=== PATIENT | female | born 1990 | race Two or more races ===

== ENCOUNTER 2017-10-16 11:16 | Emergency (ER) | payer MEDICAID, OTHER ==
[2017-10-16 11:41] VITALS: BP 144/87
[2017-10-16] MEDS ORDERED: Alum Hydrox/Mag Hydrox/Simeth 30 ML, Lidocaine 2% 15 ML PO ONE ×2 (12:45)
--- NOTE | 2017-10-16 12:50 | EDM.PDOC ---
ED HPI GENERAL MEDICAL PROBLEM - General Chief Complaint: Cardiovascular Problem Stated Complaint: HEART FLUTTERING AND SOB Time Seen by Provider: 10/16/17 12:37 Source of Information: Reports: Patient History Limitations: Reports: No Limitations - History of Present Illness INITIAL COMMENTS - FREE TEXT/NARRATIVE: Patient is a 27-year-old female presents ED complaining of substernal fluttering sensation to her chest that started while washing cars today. States she became diaphoretic, nauseated, and experienced pain to the left shoulder and left elbow. She did vomit 1. Symptoms have resolved with admission to the ED. She states her breathing rate was elevated with no n/t to extremities. Denies being anxious. She's never experienced symptoms as such. She has a diagnosis of acid reflux and notes worsening symptoms last night. Nothing today noted. She has not taken any medications today. She describes the sensation in her chest as a spasm. She is currently on no medications. She's had a cholecystectomy. Denies smoking, alcohol use, or recreational drug use. She has no history of heart disease but notes her mother was diagnosed with coronary artery disease. Unknown age. Left Chest Pain Score (Numeric/FACES): 2 - Related Data Allergies Allergy/AdvReac Type Severity Reaction Status Date / Time No Known Allergies Allergy Verified 05/29/16 11:38 Home Meds: Home Meds . [No Known Home Meds] 05/29/16 [History] Past Medical History Respiratory History: Reports: Bronchitis, Recurrent Gastrointestinal History: Reports: GERD - Past Surgical History GI Surgical History: Reports: Cholecystectomy Social & Family History - Tobacco Use Smoking Status *Q: Never Smoker - Caffeine Use Caffeine Use: Reports: Soda, Tea - Recreational Drug Use Recreational Drug Use: No ED ROS GENERAL - Review of Systems Review Of Systems: See Below (With admission) Constitutional: Reports: No Symptoms HEENT: Reports: No Symptoms Respiratory: Reports: No Symptoms Cardiovascular: Reports: No Symptoms GI/Abdominal: Reports: No Symptoms : Reports: No Symptoms Musculoskeletal: Reports: Other (Pain to the left shoulder and left elbow described as a dull ache.). Denies: Back Pain Neurological: Reports: No Symptoms ED EXAM, GENERAL - Physical Exam Exam: See Below Exam Limited By: No Limitations General Appearance: Alert, WD/WN, No Apparent Distress Ears: Hearing Grossly Normal Nose: Normal Inspection Throat/Mouth: Normal Voice, No Airway Compromise Neck: Normal Inspection, Supple Respiratory/Chest: No Respiratory Distress, Lungs Clear, Normal Breath Sounds, No Accessory Muscle Use Cardiovascular: Normal Peripheral Pulses, Regular Rate, Rhythm, No Murmur Peripheral Pulses: 2+: Radial (L), Radial (R) GI/Abdominal: Normal Bowel Sounds, Soft, Non-Tender, No Organomegaly, No Distention Back Exam: Normal Inspection Extremities: Normal Inspection, Normal Range of Motion, Non-Tender, No Pedal Edema, Normal Capillary Refill Neurological: Alert, Oriented, CN II-XII Intact, Normal Cognition, No Motor/ Sensory Deficits Psychiatric: Normal Affect, Normal Mood Skin Exam: Warm, Dry, Intact, Normal Color Course - Vital Signs Last Recorded V/S: Last Vital Signs Temp 99.0 F 10/16/17 11:39 Pulse 87 10/16/17 11:39 Resp 11 L 10/16/17 11:39 BP 144/87 H 10/16/17 11:39 Pulse Ox 100 10/16/17 11:39 - Orders/Labs/Meds Labs: Laboratory Tests 10/16/17 10/16/17 10/16/17 Range/Units 13:10 13:10 13:10 WBC 7.39 (3.98-10.04) K/mm3 RBC 4.71 (3.98-5.22) M/mm3 Hgb 13.1 (11.2-15.7) gm/L Hct 40.4 (34.1-44.9) % MCV 85.8 (79.4-94.8) fl MCH 27.8 (25.6-32.2) pg MCHC 32.4 (32.2-35.5) g/dl RDW Std Deviation 40.3 (36.4-46.3) fL Plt Count 330 (182-369) K/mm3 MPV 9.4 (9.4-12.3) fl Neut % (Auto) 61.2 (34.0-71.1) % Lymph % (Auto) 30.7 (19.3-51.7) % [place] % (Auto) 7.0 (4.7-12.5) % Eos % (Auto) 0.7 (0.7-5.8) Baso % (Auto) 0.4 (0.1-1.2) % Neut # (Auto) 4.52 (1.56-6.13) K/mm3 Lymph # (Auto) 2.27 (1.18-3.74) K/mm3 [place] # (Auto) 0.52 H (0.24-0.36) K/mm3 Eos # (Auto) 0.05 (0.04-0.36) K/mm3 Baso # (Auto) 0.03 (0.01-0.08) K/mm3 Sodium 140 (136-145) mEq/L Potassium 3.9 (3.5-5.1) mEq/L Chloride 104 (98-107) mEq/L Carbon Dioxide 29 (21-32) mEq/L Anion Gap 10.9 (5-15) BUN 10 (7-18) mg/dL Creatinine 0.8 (0.55-1.02) mg/dL Est Cr Clr Drug Dosing 102.72 mL/min Estimated GFR (MDRD) > 60 (>60) mL/min BUN/Creatinine Ratio 12.5 L (14-18) Glucose 107 H (74-106) mg/dL Calcium 8.9 (8.5-10.1) mg/dL Total Bilirubin 0.3 (0.2-1.0) mg/dL AST 25 (15-37) U/L ALT 32 (14-59) U/L Alkaline Phosphatase 61 (46-116) U/L Troponin I < 0.017 (0.00-0.056) ng/mL C-Reactive Protein 1.7 H* (<1.0) mg/dL Total Protein 8.5 H (6.4-8.2) g/dl Albumin 3.3 L (3.4-5.0) g/dl Globulin 5.2 gm/dL Albumin/Globulin Ratio 0.6 L (1-2) TSH 3rd Generation 2.199 (0.358-3.74) uIU/mL HCG, Qual Negative (NEGATIVE) Meds: Medications Discontinued Medications Generic Name Dose Route Start Last Admin Trade Name Freq PRN Reason Stop Dose Admin Al Hydroxide/Mg Hydroxide 30 0 ml 10/16/17 12:45 10/16/17 13:10 ml/ Lidocaine HCl 15 ml PO 10/16/17 12:46 45 ml ONETIME ONE Administration - Re-Assessments/Exams Free Text/Narrative Re-Assessment/Exam: Will obtain basic labs including CBC, chem 14, CRP, hCG, and TSH. Chest x-ray one view will be obtained. Ordered by mouth GI cocktail. Lipase was not ordered with abdominal discomfort noted on examination.. Suspect origin of complaint is related to acid reflux may be spasming of the esophagus. Cannot rule out episodic arrhythmias at this point. Low probability of being heart disease related. Patient does have a first-degree relative mother with history of heart disease. EKG sinus rhythm at a rate of [address] changes noted. 10/16/17 12:51 Labs reviewed: CBC essentially normal. Chemistry panel essentially normal. CRP 1.7. TSH 2.199. HCG negative. Troponin less than 0.017. CXR no acute bony abnormalities. Final interpretation pending. Reviewed with Dr. Churchill. Reassessment, patient states symptoms have resolved with taking the GI cocktail. No pain to the left shoulder or arm. No spasm sensations to the substernal chest. She is ready to be discharged home. Departure - Departure Time of Disposition: 14:02 Disposition: Home, Self-Care 01 Condition: Good Clinical Impression: Esophageal spasm Acid reflux Qualifiers: Esophagitis presence: esophagitis presence not specified Qualified Code(s): K21.9 - Gastro-esophageal reflux disease without esophagitis Instructions: Esophageal Spasm, Gastroesophageal Reflux Disease, Adult Referrals: Hien Dean PA [Primary Care Provider] - Forms: ED Department Discharge, ED Return to Work/School Form Additional Instructions: As discussed symptoms relieved with taking a GI cocktail. History suggest maybe you had a esophageal spasm causing a fluttering sensation in your chest. This may be brought on by acid reflux which you have a history of. You're currently taking no medications for acid reflux thus will have you take Prilosec 40 mg once a day half-hour prior to eating breakfast every day for the next 2 weeks. Thereafter take 20 mg every day until evaluated by PCP. In addition can use Maalox intermittently throughout the day with worsening symptoms following manufactures dosing instructions. Refrain from any foods that cause worsening symptoms. Suggest limiting spicy food, caffeine, chocolates, eating or drinking 4 hours ago in the bed since this may worsen your acid reflux. Return to ED for any new or worsening symptoms.
--- NOTE | 2017-10-16 14:17 | CR ---
Chest: Portable view of the chest was obtained. Comparison: Prior chest x-ray of 05/29/16. Heart size and mediastinum are within normal limits for portable technique. Lungs are clear. Bony structures are grossly intact. Impression: 1. Nothing acute is identified on portable chest x-ray. Diagnostic code #1
== END 2017-10-16 14:45 | disposition home or self-care (01) ==
LOC: JD.ED 11:16 → SUPCPDRO 11:16 → JD.ED 14:45
DX: K21.9 Gastro-esophageal reflux disease without esophagitis (principal); K22.4 Dyskinesia of esophagus
CPT/HCPCS: 36415; 71010; 80053; 84443; 84484; 84703; 85025; 86140; 99285; A9270; 93010; 99283-25

== ENCOUNTER 2018-07-29 22:14 | Emergency (ER) | payer SELFPAY ==
[2018-07-29 22:28] VITALS: BP 159/93
[2018-07-29] MEDS ORDERED: Ondansetron 4 MG Tab.DIS PO ONE (23:51)
--- NOTE | 2018-07-30 03:54 | ER ---
REASON FOR CLINIC VISIT: Nausea and diarrhea. HISTORY OF PRESENT ILLNESS: This 27-year-old woman comes in with a history of nausea throughout the day today. She has had episodes of diarrhea up to 6 times per day over the last 2 to 3 days. She has had crampy abdominal discomfort. She did vomit last night. Her stools are usually loose, but she has had a couple that were watery. She has not noticed any blood in her stools. She denies any fever. Her vomiting did not have any blood last evening. She has noticed some increased urinary frequency today. She has had some heartburn along with this, and she does have a history of gastroesophageal reflux disease. PAST MEDICAL HISTORY: Gastroesophageal reflux disease as mentioned above. CURRENT MEDICATIONS: Reviewed, see EMR. ALLERGIES: None to medications. REVIEW OF SYSTEMS: All pertinent positives and negatives as listed in the HPI. PHYSICAL EXAMINATION: VITAL SIGNS: She is afebrile. O2 saturations 100%. Heart rate is 106, blood pressure 159/93, respiratory rate is 22. HEENT: Head is normocephalic. No scleral icterus or conjunctivitis. Oropharynx is normal. NECK: Supple. No adenopathy. No JVD. CHEST: Clear to auscultation with good air exchange bilaterally. No wheezes, rhonchi, or rales. CARDIAC: Regular rate without murmur. ABDOMEN: Obese, soft, nontender to deep palpation. There is no rebound or guarding or percussion tenderness. No hepatosplenomegaly or other palpable masses. EXTREMITIES: Normal pulses. No edema. Good color. LABORATORY: A CBC was normal and urinalysis was normal. IMPRESSION: Gastroenteritis. PLAN: Usual supportive measures were discussed with the patient. We did give her 6 tablets of Zofran 4 mg ODT's to be used once every 6 hours as needed for nausea. I expect that her symptoms should gradually resolve. If they worsen or should she start to develop fevers, she should be seen promptly. Any concerns that she should have, she should certainly give us a call or follow up with her provider. All questions were answered. She understands and agrees with this. MMODAL /[id number]
== END 2018-07-30 00:14 | disposition home or self-care (01) ==
LOC: JD.ED 22:14
DX: K52.9 Noninfective gastroenteritis and colitis, unspecified (principal)
CPT/HCPCS: 36415; 81001; 85025; 99284; A9270; 99283

== ENCOUNTER 2018-08-05 01:26 | Emergency (ER) | payer MEDICAID ==
[2018-08-05 01:42] VITALS: BP 140/88
[2018-08-05] MEDS ORDERED: Sodium Chloride 0.9% 10 ML Syringe FLUSH PRN (01:54)
--- NOTE | 2018-08-05 02:10 | EDM.PDOC ---
ED HPI GENERAL MEDICAL PROBLEM - General Chief Complaint: General Stated Complaint: PRESSURE IN HEAD AND NECK SHAKING Time Seen by Provider: 08/05/18 01:39 Source of Information: Reports: Patient, Family, Old Records History Limitations: Reports: No Limitations - History of Present Illness INITIAL COMMENTS - FREE TEXT/NARRATIVE: Patient presents with multiple symptoms but mainly including a general head discomfort/headache that feels like fluid on the right side of her head associated with general weakness, a feeling of not balanced her off center. Her concentration has been poor, she continues to have intermittent nausea but no vomiting or diarrhea. No stiff neck, no sore throat or runny nose. No stiff neck. Onset of symptoms was greater than 7-10 days ago when she had a generalized headache that was fairly severe and then had some nausea but then the symptoms resolved until she started having the more recent vomiting and then diarrhea. She was seen and evaluated here in the department on July 31 and evaluated for probable gastroenteritis. She has been eating bland foods. No fevers chills or sweats. She did feel shaky however not quite Rigor's but shakes and tremors today. Feels like her mouth is dry. No gross vision changes. She feels generally weak both upper and lower extremities. Headache Pain Score (Numeric/FACES): 6 - Related Data Allergies Allergy/AdvReac Type Severity Reaction Status Date / Time No Known Allergies Allergy Verified 07/29/18 22:28 Home Meds: Home Meds . [No Known Home Meds] 05/29/16 [History] Past Medical History - Past Health History Medical/Surgical History: Denies Medical/Surgical History Respiratory History: Reports: Bronchitis, Recurrent Gastrointestinal History: Reports: GERD - Past Surgical History GI Surgical History: Reports: Cholecystectomy Social & Family History - Family History Family Medical History: Noncontributory - Tobacco Use Smoking Status *Q: Never Smoker Second Hand Smoke Exposure: No - Caffeine Use Caffeine Use: Reports: Coffee, Soda, Tea - Recreational Drug Use Recreational Drug Use: No ED ROS GENERAL - Review of Systems Review Of Systems: See Below Constitutional: Reports: Chills, Decreased Appetite. Denies: Fever, Night Sweats, Diaphoresis HEENT: Denies: Vision Change Respiratory: Denies: Shortness of Breath, Cough Cardiovascular: Denies: Chest Pain, Palpitations Endocrine: Reports: Fatigue. Denies: Polyuria GI/Abdominal: Reports: Nausea. Denies: Abdominal Pain, Diarrhea, Vomiting : Denies: Dysuria, Irregular Menses Musculoskeletal: Reports: Muscle Pain. Denies: Neck Pain Skin: Denies: Jaundice, Rash Neurological: Reports: Confusion, Dizziness, Headache, Weakness. Denies: Syncope, Change in Speech Psychiatric: Reports: Confusion ED EXAM, GENERAL - Physical Exam Exam: See Below Exam Limited By: No Limitations General Appearance: Alert, WD/WN, No Apparent Distress Eye Exam: Bilateral Eye: EOMI, Normal Inspection, PERRL Throat/Mouth: Normal Inspection, Normal Teeth, Normal Oropharynx, Normal Voice Head: Atraumatic Neck: Supple, Non-Tender, Full Range of Motion Respiratory/Chest: No Respiratory Distress, Lungs Clear, Normal Breath Sounds, No Accessory Muscle Use Cardiovascular: Normal Peripheral Pulses, Regular Rate, Rhythm, No Edema GI/Abdominal: Normal Bowel Sounds, Soft, Non-Tender, No Organomegaly Extremities: No Pedal Edema Neurological: Alert, Oriented, CN II-XII Intact, Normal Cognition, Other ( Patient has bilateral general STRENGTH weakness. She also has positive Romberg sign however negative for finger to nose testing that seemed to be intact. In deficit. Position sense otherwise seems to be normal. No gross visual field deficit.) Psychiatric: Anxious Skin Exam: Warm, Dry EKG INTERPRETATION EKG Date: 08/05/18 Time: 02:09 EKG Interpretation Comments: EKG shows normal sinus rhythm rate of 77. Will 165 ms QRS is under 2 ms QT corrected is 455, normal EKG no acute changes Course - Vital Signs Text/Narrative:: Rule out for stroke, tumor, focal neurologic event. Rule out underlying infection, maybe electrolyte abnormality such as hypokalemia from vomiting. Normal EKG doubt acute coronary and/or cardiovascular event. She has had mosquito bites, we'll send West Nile virus IgM titer. Hydrate with fluids, rule out diabetes or other metabolic derangement. Last Recorded V/S: Last Vital Signs Temp 97.6 F 08/05/18 01:40 Pulse 82 08/05/18 01:40 Resp 18 08/05/18 01:40 BP 140/88 08/05/18 01:40 Pulse Ox 99 08/05/18 01:40 - Orders/Labs/Meds Orders: Active Orders 24 hr Category Date Time Status Cardiac Monitoring [RC] . DIRECTED Care 08/05/18 01:55 Active EKG Documentation Completion [RC] STAT Care 08/05/18 01:54 Active Peripheral IV Care [RC] . DIRECTED Care 08/05/18 01:56 Active Head wo Cont [CT] Stat Exams 08/05/18 01:54 Taken HCG QUALITATIVE,URINE [URCHEM] Stat Lab 08/05/18 02:46 Ordered UA W/MICROSCOPIC [URIN] Stat Lab 08/05/18 02:46 Ordered [facility] [place] [facility] [REF] Stat Lab 08/05/18 02:15 Received Sodium Chloride 0.9% [Normal Saline] 1,000 ml Med 08/05/18 02:11 Active IV ONETIME Sodium Chloride 0.9% [Saline Flush] Med 08/05/18 01:54 Active 10 ml FLUSH ASDIRECTED PRN Peripheral IV Insertion Adult [OM.PC] Stat Oth 08/05/18 01:55 Ordered Medication Orders Sodium Chloride (Normal Saline) 1,000 mls @ 500 mls/hr IV ONETIME ONE Stop: 08/05/18 04:10 Sodium Chloride (Saline Flush) 10 ml FLUSH ASDIRECTED PRN PRN Reason: Keep Vein Open Labs: Laboratory Tests 08/05/18 08/05/18 08/05/18 Range/Units 02:19 02:19 02:19 WBC 10.28 H (3.98-10.04) K/mm3 RBC 4.55 (3.98-5.22) M/mm3 Hgb 12.8 (11.2-15.7) gm/L Hct 38.8 (34.1-44.9) % MCV 85.3 (79.4-94.8) fl MCH 28.1 (25.6-32.2) pg MCHC 33.0 (32.2-35.5) g/dl RDW Std Deviation 40.3 (36.4-46.3) fL Plt Count 310 (182-369) K/mm3 MPV 9.9 (9.4-12.3) fl Neut % (Auto) 56.5 (34.0-71.1) % Lymph % (Auto) 35.5 (19.3-51.7) % [place] % (Auto) 6.8 (4.7-12.5) % Eos % (Auto) 0.7 (0.7-5.8) Baso % (Auto) 0.4 (0.1-1.2) % Neut # (Auto) 5.81 (1.56-6.13) K/mm3 Lymph # (Auto) 3.65 (1.18-3.74) K/mm3 [place] # (Auto) 0.70 H (0.24-0.36) K/mm3 Eos # (Auto) 0.07 (0.04-0.36) K/mm3 Baso # (Auto) 0.04 (0.01-0.08) K/mm3 Sodium 139 (136-145) mEq/L Potassium 3.5 (3.5-5.1) mEq/L Chloride 103 (98-107) mEq/L Carbon Dioxide 26 (21-32) mEq/L Anion Gap 13.5 (5-15) BUN 10 (7-18) mg/dL Creatinine 0.9 (0.55-1.02) mg/dL Est Cr Clr Drug Dosing 91.31 mL/min Estimated GFR (MDRD) > 60 (>60) mL/min BUN/Creatinine Ratio 11.1 L (14-18) Glucose 97 (74-106) mg/dL Lactic Acid 0.7 (0.4-2.0) mmol/L Calcium 8.8 (8.5-10.1) mg/dL Total Bilirubin 0.4 (0.2-1.0) mg/dL AST 21 (15-37) U/L ALT 32 (14-59) U/L Alkaline Phosphatase 55 (46-116) U/L C-Reactive Protein 1.2 H* (<1.0) mg/dL Total Protein 8.6 H (6.4-8.2) g/dl Albumin 3.5 (3.4-5.0) g/dl Globulin 5.1 gm/dL Albumin/Globulin Ratio 0.7 L (1-2) Urine Color (Yellow) Urine Appearance (Clear) Urine pH (5.0-8.0) Ur Specific [place] (1.005-1.030) Urine Protein (Negative) Urine Glucose (UA) (Negative) Urine Ketones (Negative) Urine Occult Blood (Negative) Urine Nitrite (Negative) Urine Bilirubin (Negative) Urine Urobilinogen (0.2-1.0) Ur Leukocyte Esterase (Negative) Urine RBC (0-5) /hpf Urine WBC (0-5) /hpf Ur Epithelial Cells (0-5) /hpf Urine Bacteria (FEW) /hpf Urine Mucus (FEW) /hpf Urine HCG, Qual (NEGATIVE) 08/05/18 08/05/18 Range/Units 02:46 02:46 WBC (3.98-10.04) K/mm3 RBC (3.98-5.22) M/mm3 Hgb (11.2-15.7) gm/L Hct (34.1-44.9) % MCV (79.4-94.8) fl MCH (25.6-32.2) pg MCHC (32.2-35.5) g/dl RDW Std Deviation (36.4-46.3) fL Plt Count (182-369) K/mm3 MPV (9.4-12.3) fl Neut % (Auto) (34.0-71.1) % Lymph % (Auto) (19.3-51.7) % [place] % (Auto) (4.7-12.5) % Eos % (Auto) (0.7-5.8) Baso % (Auto) (0.1-1.2) % Neut # (Auto) (1.56-6.13) K/mm3 Lymph # (Auto) (1.18-3.74) K/mm3 [place] # (Auto) (0.24-0.36) K/mm3 Eos # (Auto) (0.04-0.36) K/mm3 Baso # (Auto) (0.01-0.08) K/mm3 Sodium (136-145) mEq/L Potassium (3.5-5.1) mEq/L Chloride (98-107) mEq/L Carbon Dioxide (21-32) mEq/L Anion Gap (5-15) BUN (7-18) mg/dL Creatinine (0.55-1.02) mg/dL Est Cr Clr Drug Dosing mL/min Estimated GFR (MDRD) (>60) mL/min BUN/Creatinine Ratio (14-18) Glucose (74-106) mg/dL Lactic Acid (0.4-2.0) mmol/L Calcium (8.5-10.1) mg/dL Total Bilirubin (0.2-1.0) mg/dL AST (15-37) U/L ALT (14-59) U/L Alkaline Phosphatase (46-116) U/L C-Reactive Protein (<1.0) mg/dL Total Protein (6.4-8.2) g/dl Albumin (3.4-5.0) g/dl Globulin gm/dL Albumin/Globulin Ratio (1-2) Urine Color Yellow (Yellow) Urine Appearance Clear (Clear) Urine pH 6.5 (5.0-8.0) Ur Specific [place] 1.010 (1.005-1.030) Urine Protein Negative (Negative) Urine Glucose (UA) Negative (Negative) Urine Ketones Negative (Negative) Urine Occult Blood Negative (Negative) Urine Nitrite Negative (Negative) Urine Bilirubin Negative (Negative) Urine Urobilinogen 0.2 (0.2-1.0) Ur Leukocyte Esterase Negative (Negative) Urine RBC Not seen (0-5) /hpf Urine WBC Not seen (0-5) /hpf Ur Epithelial Cells Not seen (0-5) /hpf Urine Bacteria Rare (FEW) /hpf Urine Mucus Not seen (FEW) /hpf Urine HCG, Qual Negative (NEGATIVE) Meds: Medications Generic Name Dose Route Start Last Admin Trade Name Freq PRN Reason Stop Dose Admin Sodium Chloride 1,000 mls @ 500 mls/hr 08/05/18 02:11 Normal Saline IV 08/05/18 04:10 ONETIME ONE Sodium Chloride 10 ml 08/05/18 01:54 Saline Flush FLUSH ASDIRECTED PRN Keep Vein Open - Radiology Interpretation Free Text/Narrative:: CT head without contrast is reviewed with radiology and is within normal limits no acute findings. - Re-Assessments/Exams Free Text/Narrative Re-Assessment/Exam: 08/05/18 03:24 White blood cell count mildly elevated 10,700 hemoglobin and hematocrit are normal, CRP is 1.2 lactic acid test is negative, peds metabolic panel otherwise is normal. Free Text/Narrative Re-Assessment/Exam: 08/05/18 03:46 Reviewed all the results with the patient and currently her CT scan is normal white count 10,200, hemoglobin and hematocrit are stable, CRP is 1.2, blood sugar stable, serum lactate is normal, like lites otherwise within normal limits. His could be West Nile virus, no major headache doubt meningitis or encephalitis. Does seem to be more of a viral or flulike illness. Patient tolerating fluids well. Vital signs at this point are stable. We'll discharge patient home however she'll need to establish primary care. We'll write her for strict return precautions including increasing weakness, headaches, persistent nausea or vomiting, any worsening focal weakness, fevers chills or sweats. Departure - Departure Time of Disposition: 03:49 Disposition: Home, Self-Care 01 Preliminary Cause of *Q: Cardiac Arrest Condition: Fair Clinical Impression: Viral illness, Weakness generalized - Discharge Information Instructions: Fatigue, Weakness, [id number], Viral Illness, Adult Referrals: PCP,None [Primary Care Provider] - Forms: ED Department Discharge Additional Instructions: Follow-up in the walk-in clinic later this week to follow up on her West Nile virus titer. Rest, drink plenty of fluids. Take Tylenol or Motrin for aches or pains. Return to the emergency department if headaches, vision changes, fevers, vomiting and unable to keep down fluids, increasing weakness, worse - My Orders Last 24 Hours: My Active Orders 08/05/18 01:54 EKG Documentation Completion [RC] STAT Head wo Cont [CT] Stat Sodium Chloride 0.9% [Saline Flush] 10 ml FLUSH ASDIRECTED PRN 08/05/18 01:55 Cardiac Monitoring [RC] . DIRECTED Peripheral IV Insertion Adult [OM.PC] Stat 08/05/18 01:56 Peripheral IV Care [RC] . DIRECTED 08/05/18 02:11 Sodium Chloride 0.9% [Normal Saline] 1,000 ml IV ONETIME 08/05/18 02:15 [facility] [place] [facility] [REF] Stat 08/05/18 02:46 HCG QUALITATIVE,URINE [URCHEM] Stat UA W/MICROSCOPIC [URIN] Stat - Assessment/Plan Last 24 Hours: My Active Orders 08/05/18 01:54 EKG Documentation Completion [RC] STAT Head wo Cont [CT] Stat Sodium Chloride 0.9% [Saline Flush] 10 ml FLUSH ASDIRECTED PRN 08/05/18 01:55 Cardiac Monitoring [RC] . DIRECTED Peripheral IV Insertion Adult [OM.PC] Stat 08/05/18 01:56 Peripheral IV Care [RC] . DIRECTED 08/05/18 02:11 Sodium Chloride 0.9% [Normal Saline] 1,000 ml IV ONETIME 08/05/18 02:15 [facility] [place] [facility] [REF] Stat 08/05/18 02:46 HCG QUALITATIVE,URINE [URCHEM] Stat UA W/MICROSCOPIC [URIN] Stat
[2018-08-05] MEDS ORDERED: Sodium Chloride 0.9% 1,000 ML IV ONE (02:11)
[2018-08-05] MEDS ORDERED: Lidocaine 2% 20 ML MDV ONE (04:35)
[2018-08-05] MEDS ORDERED: Lidocaine 1% 50 ML MDV ONE (04:37)
[2018-08-05] MEDS ORDERED: Lidocaine 1% 10 ML MDV INJECT ONE (04:40)
--- NOTE | 2018-08-06 11:51 | CT ---
Head CT Technique: Multiple axial sections through the brain were obtained. Intravenous contrast was not utilized. Comparison: No prior intracranial imaging. Findings: Ventricles along with basal cisterns and sulci over the convexities are within normal limits for the patient's age. No abnormal parenchymal densities are seen. No evidence of intracranial hemorrhage. No midline shift or mass effect is seen. Bone window settings were reviewed which show the visualized sinuses to appear clear. No acute calvarial abnormality is seen. Impression: 1. No abnormality is seen on noncontrast head CT exam. Diagnostic code #1 I agree with preliminary report from [facility], finalized on 08/05/18, 4:18 AM Central Time
== END 2018-08-05 06:56 | disposition home or self-care (01) ==
LOC: JD.ED 01:26
DX: B34.9 Viral infection, unspecified (principal); R53.1 Weakness
CPT/HCPCS: 36415; 62270; 62272; 70450; 70450-26; 80053; 81001; 81025; 82945; 83605; 84157; 85025; 86140; 86788; 87070; 87205; 89050; 93005; 93010; 99284-25; 99285-25

== ENCOUNTER 2018-08-11 06:31 | Observation (INO) | payer SELFPAY ==
[2018-08-11] MEDS ORDERED: Sodium Chloride 0.9% 10 ML Syringe FLUSH PRN (07:26)
[2018-08-11] MEDS ORDERED: Sodium Chloride 0.9% 1,000 ML IV SCH (07:30)
--- NOTE | 2018-08-11 09:18 | EDM.PDOC ---
ED HPI GENERAL MEDICAL PROBLEM - General Chief Complaint: General Stated Complaint: nausea Time Seen by Provider: 08/11/18 07:06 Source of Information: Reports: Patient History Limitations: Reports: No Limitations - History of Present Illness INITIAL COMMENTS - FREE TEXT/NARRATIVE: The patient presents with nausea, generalized weakness, headache and lethargy. She says this has been going on for about 2 weeks. She started with nausea, vomiting and diarrhea. She was seen here and labs were done which were negative. C-dif was also negative. She kept having symptoms. She had pressure in her head. She was seen here on the and more labs were done and a lumbar puncture. That all looked good. A CT of her head was done that looked good. She still has symptoms. She has nausea, dizziness, generalized weakness, headache, lethargy and she had trouble walking. She needed the help of her father and a nurse to get into bed. She still has some head pressure, chills, and diarrhea. She does not have a fever, chest pain, cough, shortness of breath, abdominal pain or vomiting. She has never had anything like this before. She has not been around anyone who is sick and she did not eat any bad food. Onset: Gradual Duration: Week(s): (2) Location: Reports: Head Quality: Reports: Pressure Severity: Mild Improves with: Reports: None Worsens with: Reports: None Associated Symptoms: Reports: Fever/Chills, Headaches, Nausea/Vomiting. Denies : Chest Pain, Cough, Shortness of Breath - Related Data Allergies Allergy/AdvReac Type Severity Reaction Status Date / Time No Known Allergies Allergy Verified 07/29/18 22:28 Home Meds: Home Meds . [No Known Home Meds] 05/29/16 [History] Past Medical History - Past Health History Medical/Surgical History: Denies Medical/Surgical History Respiratory History: Reports: Bronchitis, Recurrent Gastrointestinal History: Reports: GERD - Past Surgical History GI Surgical History: Reports: Cholecystectomy Social & Family History - Family History Family Medical History: Noncontributory - Tobacco Use Smoking Status *Q: Unknown Ever Smoked - Caffeine Use Caffeine Use: Reports: Coffee, Soda, Tea ED ROS GENERAL - Review of Systems Review Of Systems: See Below Constitutional: Reports: Chills, Malaise, Weakness, Fatigue. Denies: Fever HEENT: Reports: No Symptoms Respiratory: Reports: No Symptoms Cardiovascular: Reports: No Symptoms Endocrine: Reports: Fatigue GI/Abdominal: Reports: Diarrhea, Nausea. Denies: Abdominal Pain, Vomiting : Reports: No Symptoms Musculoskeletal: Reports: No Symptoms ED EXAM, GENERAL - Physical Exam Exam: See Below Exam Limited By: No Limitations General Appearance: Alert, No Apparent Distress Ears: Normal External Exam Nose: Normal Inspection Head: Atraumatic, Normocephalic Neck: Normal Inspection Respiratory/Chest: No Respiratory Distress, Lungs Clear, Normal Breath Sounds Cardiovascular: Regular Rate, Rhythm, No Edema, No Murmur GI/Abdominal: Soft, Non-Tender, No Organomegaly, No Mass Back Exam: Normal Inspection Extremities: Normal Inspection Neurological: Alert, Oriented, Other (Genaralized weakness. She can lift her arms and legs up but she is very weak doing it.) EKG INTERPRETATION EKG Date: 08/11/18 Time: 07:36 Rhythm: NSR Rate (Beats/Min): 71 [place]: Normal P-Wave: Present QRS: Normal ST-T: Normal QT: Normal Course - Vital Signs Last Recorded V/S: Last Vital Signs Temp 98.5 F 08/11/18 06:57 Pulse 92 08/11/18 06:57 Resp 18 08/11/18 06:57 BP 159/80 H 08/11/18 06:57 Pulse Ox 100 08/11/18 06:57 - Orders/Labs/Meds Orders: Active Orders 24 hr Category Date Time Status Patient Status [ADT] Routine ADT 08/11/18 15:13 Ordered Cardiac Monitoring [RC] . DIRECTED Care 08/11/18 07:26 Active EKG Documentation Completion [RC] STAT Care 08/11/18 07:28 Active Peripheral IV Care [RC] . DIRECTED Care 08/11/18 07:28 Active CULTURE STOOL + SHIGATOX [RM] Stat Lab 08/11/18 08:15 Received DRUG SCREEN, URINE [URCHEM] Stat Lab 08/11/18 08:03 Ordered OVA & PARASITES BY IMMUNOASSAY [MREF] Stat Lab 08/11/18 08:15 Received THYROXINE (T4) [REF] Stat Lab 08/11/18 08:35 Received UA W/MICROSCOPIC [URIN] Stat Lab 08/11/18 08:03 Ordered Sodium Chloride 0.9% [Normal Saline] 1,000 ml Med 08/11/18 07:30 Active IV ASDIRECTED Sodium Chloride 0.9% [Saline Flush] Med 08/11/18 07:26 Active 10 ml FLUSH ASDIRECTED PRN Peripheral IV Insertion Adult [OM.PC] Stat Oth 08/11/18 07:26 Ordered Medication Orders Sodium Chloride (Normal Saline) 1,000 mls @ 125 mls/hr IV ASDIRECTED DANK Last Admin: 08/11/18 07:55 Dose: 125 mls/hr Sodium Chloride (Saline Flush) 10 ml FLUSH ASDIRECTED PRN PRN Reason: Keep Vein Open Last Admin: 08/11/18 07:55 Dose: 10 ml Labs: Laboratory Tests 08/11/18 08/11/18 08/11/18 Range/Units 07:55 07:55 07:55 WBC 8.77 (3.98-10.04) K/mm3 RBC 4.70 (3.98-5.22) M/mm3 Hgb 13.1 (11.2-15.7) gm/L Hct 39.6 (34.1-44.9) % MCV 84.3 (79.4-94.8) fl MCH 27.9 (25.6-32.2) pg MCHC 33.1 (32.2-35.5) g/dl RDW Std Deviation 39.1 (36.4-46.3) fL Plt Count 317 (182-369) K/mm3 MPV 10.3 (9.4-12.3) fl Neut % (Auto) 56.7 (34.0-71.1) % Lymph % (Auto) 36.0 (19.3-51.7) % [place] % (Auto) 6.8 (4.7-12.5) % Eos % (Auto) 0.2 L (0.7-5.8) Baso % (Auto) 0.2 (0.1-1.2) % Neut # (Auto) 4.96 (1.56-6.13) K/mm3 Lymph # (Auto) 3.16 (1.18-3.74) K/mm3 [place] # (Auto) 0.60 H (0.24-0.36) K/mm3 Eos # (Auto) 0.02 L (0.04-0.36) K/mm3 Baso # (Auto) 0.02 (0.01-0.08) K/mm3 ESR 47 H (0-20) mm/hr Sodium 139 (136-145) mEq/L Potassium 3.9 (3.5-5.1) mEq/L Chloride 104 (98-107) mEq/L Carbon Dioxide 25 (21-32) mEq/L Anion Gap 13.9 (5-15) BUN 9 (7-18) mg/dL Creatinine 1.0 (0.55-1.02) mg/dL Est Cr Clr Drug Dosing TNP Estimated GFR (MDRD) > 60 (>60) mL/min BUN/Creatinine Ratio 9.0 L (14-18) Glucose 100 (74-106) mg/dL Calcium 9.4 (8.5-10.1) mg/dL Magnesium 2.3 (1.8-2.4) mg/dl Total Bilirubin 0.5 (0.2-1.0) mg/dL AST 30 (15-37) U/L ALT 45 (14-59) U/L Alkaline Phosphatase 56 (46-116) U/L Troponin I < 0.017 (0.00-0.056) ng/mL C-Reactive Protein 1.2 H* (<1.0) mg/dL Total Protein 8.8 H (6.4-8.2) g/dl Albumin 3.6 (3.4-5.0) g/dl Globulin 5.2 gm/dL Albumin/Globulin Ratio 0.7 L (1-2) TSH 3rd Generation 1.429 (0.358-3.74) uIU/mL HCG, Qual (NEGATIVE) Urine Color (Yellow) Urine Appearance (Clear) Urine pH (5.0-8.0) Ur Specific [place] (1.005-1.030) Urine Protein (Negative) Urine Glucose (UA) (Negative) Urine Ketones (Negative) Urine Occult Blood (Negative) Urine Nitrite (Negative) Urine Bilirubin (Negative) Urine Urobilinogen (0.2-1.0) Ur Leukocyte Esterase (Negative) Urine RBC (0-5) /hpf Urine WBC (0-5) /hpf Ur Epithelial Cells (0-5) /hpf Urine Bacteria (FEW) /hpf Urine Mucus (FEW) /hpf Urine Opiates Screen (NEGATIVE) Ur Buprenorphine Scrn (NEGATIVE) Ur Oxycodone Screen (NEGATIVE) Urine Methadone Screen (NEGATIVE) Ur Propoxyphene Screen (NEGATIVE) Ur Barbiturates Screen (NEGATIVE) Ur Tricyclics Screen (NEGATIVE) Ur Phencyclidine Scrn (NEGATIVE) Ur Amphetamine Screen (NEGATIVE) U Methamphetamines Scrn (NEGATIVE) U Benzodiazepines Scrn (NEGATIVE) U Cocaine Metab Screen (NEGATIVE) U Marijuana (THC) Screen (NEGATIVE) Ethyl Alcohol 0.00 (0.00) gm% C.difficile 027-NAP1-B1 C. difficile Tox (PCR) 08/11/18 08/11/18 08/11/18 Range/Units 08:03 08:03 08:15 WBC (3.98-10.04) K/mm3 RBC (3.98-5.22) M/mm3 Hgb (11.2-15.7) gm/L Hct (34.1-44.9) % MCV (79.4-94.8) fl MCH (25.6-32.2) pg MCHC (32.2-35.5) g/dl RDW Std Deviation (36.4-46.3) fL Plt Count (182-369) K/mm3 MPV (9.4-12.3) fl Neut % (Auto) (34.0-71.1) % Lymph % (Auto) (19.3-51.7) % [place] % (Auto) (4.7-12.5) % Eos % (Auto) (0.7-5.8) Baso % (Auto) (0.1-1.2) % Neut # (Auto) (1.56-6.13) K/mm3 Lymph # (Auto) (1.18-3.74) K/mm3 [place] # (Auto) (0.24-0.36) K/mm3 Eos # (Auto) (0.04-0.36) K/mm3 Baso # (Auto) (0.01-0.08) K/mm3 ESR (0-20) mm/hr Sodium (136-145) mEq/L Potassium (3.5-5.1) mEq/L Chloride (98-107) mEq/L Carbon Dioxide (21-32) mEq/L Anion Gap (5-15) BUN (7-18) mg/dL Creatinine (0.55-1.02) mg/dL Est Cr Clr Drug Dosing Estimated GFR (MDRD) (>60) mL/min BUN/Creatinine Ratio (14-18) Glucose (74-106) mg/dL Calcium (8.5-10.1) mg/dL Magnesium (1.8-2.4) mg/dl Total Bilirubin (0.2-1.0) mg/dL AST (15-37) U/L ALT (14-59) U/L Alkaline Phosphatase (46-116) U/L Troponin I (0.00-0.056) ng/mL C-Reactive Protein (<1.0) mg/dL Total Protein (6.4-8.2) g/dl Albumin (3.4-5.0) g/dl Globulin gm/dL Albumin/Globulin Ratio (1-2) TSH 3rd Generation (0.358-3.74) uIU/mL HCG, Qual (NEGATIVE) Urine Color Yellow (Yellow) Urine Appearance Clear (Clear) Urine pH 7.5 (5.0-8.0) Ur Specific [place] 1.015 (1.005-1.030) Urine Protein Negative (Negative) Urine Glucose (UA) Negative (Negative) Urine Ketones Trace H (Negative) Urine Occult Blood Negative (Negative) Urine Nitrite Negative (Negative) Urine Bilirubin Negative (Negative) Urine Urobilinogen 0.2 (0.2-1.0) Ur Leukocyte Esterase Negative (Negative) Urine RBC 0-5 (0-5) /hpf Urine WBC 0-5 (0-5) /hpf Ur Epithelial Cells 0-5 (0-5) /hpf Urine Bacteria Rare (FEW) /hpf Urine Mucus Few (FEW) /hpf Urine Opiates Screen Negative (NEGATIVE) Ur Buprenorphine Scrn Negative (NEGATIVE) Ur Oxycodone Screen Negative (NEGATIVE) Urine Methadone Screen Negative (NEGATIVE) Ur Propoxyphene Screen Negative (NEGATIVE) Ur Barbiturates Screen Negative (NEGATIVE) Ur Tricyclics Screen Negative (NEGATIVE) Ur Phencyclidine Scrn Negative (NEGATIVE) Ur Amphetamine Screen Negative (NEGATIVE) U Methamphetamines Scrn Negative (NEGATIVE) U Benzodiazepines Scrn Negative (NEGATIVE) U Cocaine Metab Screen Negative (NEGATIVE) U Marijuana (THC) Screen Negative (NEGATIVE) Ethyl Alcohol (0.00) gm% C.difficile [id number]-NAP1-B1 Presumptive negative C. difficile Tox (PCR) Negative 08/11/18 Range/Units 08:35 WBC (3.98-10.04) K/mm3 RBC (3.98-5.22) M/mm3 Hgb (11.2-15.7) gm/L Hct (34.1-44.9) % MCV (79.4-94.8) fl MCH (25.6-32.2) pg MCHC (32.2-35.5) g/dl RDW Std Deviation (36.4-46.3) fL Plt Count (182-369) K/mm3 MPV (9.4-12.3) fl Neut % (Auto) (34.0-71.1) % Lymph % (Auto) (19.3-51.7) % [place] % (Auto) (4.7-12.5) % Eos % (Auto) (0.7-5.8) Baso % (Auto) (0.1-1.2) % Neut # (Auto) (1.56-6.13) K/mm3 Lymph # (Auto) (1.18-3.74) K/mm3 [place] # (Auto) (0.24-0.36) K/mm3 Eos # (Auto) (0.04-0.36) K/mm3 Baso # (Auto) (0.01-0.08) K/mm3 ESR (0-20) mm/hr Sodium (136-145) mEq/L Potassium (3.5-5.1) mEq/L Chloride (98-107) mEq/L Carbon Dioxide (21-32) mEq/L Anion Gap (5-15) BUN (7-18) mg/dL Creatinine (0.55-1.02) mg/dL Est Cr Clr Drug Dosing Estimated GFR (MDRD) (>60) mL/min BUN/Creatinine Ratio (14-18) Glucose (74-106) mg/dL Calcium (8.5-10.1) mg/dL Magnesium (1.8-2.4) mg/dl Total Bilirubin (0.2-1.0) mg/dL AST (15-37) U/L ALT (14-59) U/L Alkaline Phosphatase (46-116) U/L Troponin I (0.00-0.056) ng/mL C-Reactive Protein (<1.0) mg/dL Total Protein (6.4-8.2) g/dl Albumin (3.4-5.0) g/dl Globulin gm/dL Albumin/Globulin Ratio (1-2) TSH 3rd Generation (0.358-3.74) uIU/mL HCG, Qual Negative (NEGATIVE) Urine Color (Yellow) Urine Appearance (Clear) Urine pH (5.0-8.0) Ur Specific [place] (1.005-1.030) Urine Protein (Negative) Urine Glucose (UA) (Negative) Urine Ketones (Negative) Urine Occult Blood (Negative) Urine Nitrite (Negative) Urine Bilirubin (Negative) Urine Urobilinogen (0.2-1.0) Ur Leukocyte Esterase (Negative) Urine RBC (0-5) /hpf Urine WBC (0-5) /hpf Ur Epithelial Cells (0-5) /hpf Urine Bacteria (FEW) /hpf Urine Mucus (FEW) /hpf Urine Opiates Screen (NEGATIVE) Ur Buprenorphine Scrn (NEGATIVE) Ur Oxycodone Screen (NEGATIVE) Urine Methadone Screen (NEGATIVE) Ur Propoxyphene Screen (NEGATIVE) Ur Barbiturates Screen (NEGATIVE) Ur Tricyclics Screen (NEGATIVE) Ur Phencyclidine Scrn (NEGATIVE) Ur Amphetamine Screen (NEGATIVE) U Methamphetamines Scrn (NEGATIVE) U Benzodiazepines Scrn (NEGATIVE) U Cocaine Metab Screen (NEGATIVE) U Marijuana (THC) Screen (NEGATIVE) Ethyl Alcohol (0.00) gm% C.difficile [id number]-NAP1-B1 C. difficile Tox (PCR) Meds: Medications Generic Name Dose Route Start Last Admin Trade Name Freq PRN Reason Stop Dose Admin Sodium Chloride 1,000 mls @ 125 mls/hr 08/11/18 07:30 08/11/18 07:55 Normal Saline IV 125 mls/hr ASDIRECTED DANK Administration Sodium Chloride 10 ml 08/11/18 07:26 08/11/18 07:55 Saline Flush FLUSH 10 ml ASDIRECTED PRN Administration Keep Vein Open Discontinued Medications Generic Name Dose Route Start Last Admin Trade Name Freq PRN Reason Stop Dose Admin Meclizine HCl 25 mg 08/11/18 07:28 08/11/18 08:01 Antivert PO 08/11/18 07:29 25 mg ONETIME ONE Administration Ondansetron HCl 4 mg 08/11/18 09:29 08/11/18 09:36 Zofran IVPUSH 08/11/18 09:30 4 mg ONETIME ONE Administration - Re-Assessments/Exams Free Text/Narrative Re-Assessment/Exam: 08/11/18 09:20 I ordered an IV NS at 125mL/hr, labs, EKG and a UA. Her EKG shows a NSR with no acute changes. Her CBC and CMP look good. Her CRP was slightly elevated at 1.2. That has been about the same for the past couple of weeks. 08/11/18 09:21 Her TSH was normal. Her troponin was negative. Her UDS was negative and her ETOH was negative. I can get an MRI in a couple hours. I am not sure what is going on at this time. She was able to give us a stool sample. I will check it for C-dif, culture, ova and parasites. 08/11/18 15:14 Her C-dif was negative. Her MRI showed nothing acute. She feels a little better but I am not sure what is causing her problems at this time. I called Dr Hill and he agreed to the admission to observation. Departure - Departure Time of Disposition: 15:15 Disposition: Refer to Observation Condition: Fair Clinical Impression: Weakness, Nausea Headache Qualifiers: Headache type: unspecified Headache chronicity pattern: unspecified pattern Intractability: not intractable Qualified Code(s): R51 - Headache Diarrhea Qualifiers: Diarrhea type: unspecified type Qualified Code(s): R19.7 - Diarrhea, unspecified - Discharge Information Referrals: Yasmine Albright PA-C [Primary Care Provider] - Forms: ED Department Discharge - My Orders Last 24 Hours: My Active Orders 08/11/18 07:26 Cardiac Monitoring [RC] . DIRECTED Sodium Chloride 0.9% [Saline Flush] 10 ml FLUSH ASDIRECTED PRN Peripheral IV Insertion Adult [OM.PC] Stat 08/11/18 07:28 EKG Documentation Completion [RC] STAT Peripheral IV Care [RC] . DIRECTED 08/11/18 07:30 Sodium Chloride 0.9% [Normal Saline] 1,000 ml IV ASDIRECTED 08/11/18 08:03 DRUG SCREEN, URINE [URCHEM] Stat UA W/MICROSCOPIC [URIN] Stat 08/11/18 08:15 CULTURE STOOL + SHIGATOX [RM] Stat OVA & PARASITES BY IMMUNOASSAY [MREF] Stat 08/11/18 08:35 THYROXINE (T4) [REF] Stat 08/11/18 15:13 Patient Status [ADT] Routine - Assessment/Plan Last 24 Hours: My Active Orders 08/11/18 07:26 Cardiac Monitoring [RC] . DIRECTED Sodium Chloride 0.9% [Saline Flush] 10 ml FLUSH ASDIRECTED PRN Peripheral IV Insertion Adult [OM.PC] Stat 08/11/18 07:28 EKG Documentation Completion [RC] STAT Peripheral IV Care [RC] . DIRECTED 08/11/18 07:30 Sodium Chloride 0.9% [Normal Saline] 1,000 ml IV ASDIRECTED 08/11/18 08:03 DRUG SCREEN, URINE [URCHEM] Stat UA W/MICROSCOPIC [URIN] Stat 08/11/18 08:15 CULTURE STOOL + SHIGATOX [RM] Stat OVA & PARASITES BY IMMUNOASSAY [MREF] Stat 08/11/18 08:35 THYROXINE (T4) [REF] Stat 08/11/18 15:13 Patient Status [ADT] Routine
[2018-08-11] MEDS ORDERED: Ondansetron 4 MG/2 ML SDV IVPUSH ONE (09:29)
--- NOTE | 2018-08-11 12:11 | MR ---
MRI brain Technique: T1 sagittal; T2, T2 FLAIR, T1 and diffusion axial; T1 FLAIR coronal images were obtained. Comparison: Prior head CT exam of 08/05/18. Findings: Ventricles along with basal cisterns and sulci over the convexities are within normal limits for the patient's age. Normal signal void is seen within the major cerebral arteries within the skull base. No abnormal signal is seen within the brain parenchyma. No midline shift or mass effect is seen. No acute diffusion abnormalities are seen. There is some vague increased signal being seen within the middle cerebral peduncles and within the upper cerebral hemispheres on the diffusion study which is felt to be artifact. Impression: 1. Incidental artifactual diffusion findings as noted above. 2. MRI study of the brain is otherwise unremarkable. Diagnostic code #1
--- NOTE | 2018-08-11 15:09 | PCM.HP ---
<Roya Arredondoe - Last Filed: 08/11/18 15:43> H&P History of Present Illness - General Date of Service: 08/11/18 Source of Information: Patient History Limitations: Reports: No Limitations - History of Present Illness Initial Comments - Free Text/Narative: 27 y/o female presented to the ER today 08/11/18 with nausea, diarrhea, weakness , lethargy, and head pressure. She has been to the ER twice in the last two weeks for similar complaints, most recently on 08/05, and saw her PCP yesterday on 08/10. Previous workup has included blood draw, UA, EKG, head CT, and lumbar puncture, all of which showed no abnormalities. The lumbar puncture, done on 08/05 , did not improve nor worsen her symptoms. She states her PCP ordered labs to test for Lyme disease, hypothyroidism, and diabetes. Blood pressure was 159/80 today. She says the symptoms first began about 2 weeks ago, when she woke up one morning with a severe headache, pain level "10/10", which she said was the worst pain of her life. Her mouth was extremely dry at that time so she drank water and her headache resolved within the hour. The headache was followed by a sensation of "head pressure" and onset of dizziness, nausea, vomiting, and diarrhea. She initially thought she had the stomach flu or a viral illness. She later developed muscle weakness, spasms, and stiffness which are most prominent in her back, shoulders, and calves. She has occasional numbness and tingling in her lower extremities. She has continued to have dry mouth since this began and drinks about 7 17oz bottles of water daily to relieve this. The symptoms have persisted the last couple weeks, with severity waxing and waning throughout that time. During the last 3-4 days, her symptoms have gotten progressively worse. She is now lethargic and fatigued. Dizziness and weakness has worsened to the point that she finds it difficult to stand without support and bright lights and loud sounds are bothersome to her. She is having diarrhea multiple times per day despite having no appetite and eating very little. She is finding it difficult to sleep as she can't get comfortable and is very worried about what is happening to her. She states "I feel that I may " and is very frustrated with her symptoms. She has not had symptoms like this prior to the last 2 weeks. She has not traveled recently. She has not been around anyone who is sick. She has not had any new or bad foods. She did have many bug bites this summer, some of which became swollen and red. She also moved to a new apartment this month. She denies fever, vision changes, chest pain, palpitations, bruising , bleeding, and skin rashes. Prior to this experience, the patient was fairly healthy. She has GERD, for which she takes occasional mylanta. She states her PCP has also been concerned that she may have PCOS, due to her hirsutism, obesity, and infrequent menstrual cycles. Her last menstrual period was "years ago" but she is not concerned about as she has never been sexually active. She also has had anxiety in the past and saw a psychologist but says that this has been under control the last couple years. She denies tobacco and drug use and has only consumed alcohol once in her life. She is not currently taking any medications. Onset of Symptoms: Reports: Gradual Duration of Symptoms: Reports: Week(s): (2), Getting Worse, Waxing/Waning - Related Data Allergies/Adverse Reactions: Allergies Allergy/AdvReac Type Severity Reaction Status Date / Time No Known Allergies Allergy Verified 07/29/18 22:28 Home Medications: Home Meds . 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: Reports: Polycystic Ovaries (possible PCOS) LMP (Approximate): > 3 Months Psychiatric History: Reports: Anxiety - Past Surgical History GI Surgical History: Reports: Cholecystectomy Social & Family History - Family History Family Medical History: Noncontributory Endocrine/Metabolic: Reports: Diabetes, type II (mother, maternal grandmother, maternal uncle) Oncologic: Reports: Colon (colon cancer - paternal aunt) - Tobacco Use Smoking Status *Q: Never Smoker - Caffeine Use Caffeine Use: Reports: Coffee, Soda, Tea - Alcohol Use Alcohol Use History: No - Recreational Drug Use Recreational Drug Use: No - Sexual History Sexual History: Reports: None - Living Situation & Occupation Living situation: Reports: with Family Occupation: Unemployed Social History Comment: She recently moved to a new apartment with her father and brother. She has been unemployed the last two months. Prior to that she worked at [employer]. H&P Review of Systems - Review of Systems: Review Of Systems: See Below General: Reports: Malaise, Weakness, Fatigue, Decreased Appetite. Denies: Fever HEENT: Reports: Headaches, Other (head pressure). Denies: Hearing Changes, Visual Changes Pulmonary: Reports: Shortness of Breath, Cough Cardiovascular: Reports: No Symptoms Gastrointestinal: Reports: Abdominal Pain, Diarrhea, Decreased Appetite, Nausea , Vomiting Genitourinary: Reports: No Symptoms Musculoskeletal: Reports: Neck Pain, Shoulder Pain, Back Pain, Leg Pain, Muscle Pain, Muscle Stiffness Skin: Reports: No Symptoms Psychiatric: Reports: No Symptoms Neurological: Reports: Dizziness, Headache, Numbness, Tingling, Difficulty Walking, Weakness Hematologic/Lymphatic: Reports: No Symptoms Immunologic: Reports: No Symptoms Exam - Exam Exam: See Below - Vital Signs Vital Signs: Last Vital Signs Temp 98.5 F 08/11/18 06:57 Pulse 92 08/11/18 06:57 Resp 18 08/11/18 06:57 BP 159/80 H 08/11/18 06:57 Pulse Ox 100 08/11/18 06:57 - Exam General: Alert, Oriented, Cooperative, Moderate Distress HEENT: Conjunctiva Clear, EOMI, Hearing Intact, Nares Patent, Other ( opthalmascope exam performed - eyes were blurry and cloudy, optic disc and vessels could not be visualized) Neck: Supple, Trachea Midline Lungs: Clear to Auscultation, Normal Respiratory Effort Cardiovascular: Regular Rate, Regular Rhythm GI/Abdominal Exam: Normal Bowel Sounds, Soft, Tender (Female) Exam: Deferred Rectal (Female) Exam: Deferred Back Exam: Normal Inspection, Full Range of Motion Extremities: Normal Inspection, Normal Range of Motion, Non-Tender, No Pedal Edema Peripheral Pulses: 2+: Radial (L), Radial (R), Posterior Tibial (L), Posterior Tibial (R) Skin: Warm, Dry, Intact, Other (hirsutism) Neurological: Cranial Nerves Intact, Normal Speech, Sensation Intact Neuro Extensive - Mental Status: Alert, Normal Mood/Affect, Normal Cognition, Memory Intact Neuro Extensive - Motor, Sensory, Reflexes: CN II-XII Intact Psychiatric: Alert, Normal Affect, Normal Mood Physical Exam Comments:: Patient appears to be in some distress. She is having head and neck discomfort and generalized abdominal pain during the exam. Abdomen is tender upon palpation. Neuro exam shows intact hearing, EOM, processing talc and borate supervisor strength, and sensation. Eyes appear cloudy upon ophthalmoscope exam and optic disc and vessels cannot be visualized. No other abnormalities found. - Patient Data Lab Results Last 24 hrs: Laboratory Results - last 24 hr 08/11/18 08/11/18 08/11/18 Range/Units 07:55 07:55 07:55 WBC 8.77 (3.98-10.04) K/mm3 RBC 4.70 (3.98-5.22) M/mm3 Hgb 13.1 (11.2-15.7) gm/L Hct 39.6 (34.1-44.9) % MCV 84.3 (79.4-94.8) fl MCH 27.9 (25.6-32.2) pg MCHC 33.1 (32.2-35.5) g/dl RDW Std Deviation 39.1 (36.4-46.3) fL Plt Count 317 (182-369) K/mm3 MPV 10.3 (9.4-12.3) fl Neut % (Auto) 56.7 (34.0-71.1) % Lymph % (Auto) 36.0 (19.3-51.7) % [place] % (Auto) 6.8 (4.7-12.5) % Eos % (Auto) 0.2 L (0.7-5.8) Baso % (Auto) 0.2 (0.1-1.2) % Neut # (Auto) 4.96 (1.56-6.13) K/mm3 Lymph # (Auto) 3.16 (1.18-3.74) K/mm3 [place] # (Auto) 0.60 H (0.24-0.36) K/mm3 Eos # (Auto) 0.02 L (0.04-0.36) K/mm3 Baso # (Auto) 0.02 (0.01-0.08) K/mm3 ESR 47 H (0-20) mm/hr Sodium 139 (136-145) mEq/L Potassium 3.9 (3.5-5.1) mEq/L Chloride 104 (98-107) mEq/L Carbon Dioxide 25 (21-32) mEq/L Anion Gap 13.9 (5-15) BUN 9 (7-18) mg/dL Creatinine 1.0 (0.55-1.02) mg/dL Est Cr Clr Drug Dosing TNP Estimated GFR (MDRD) > 60 (>60) mL/min BUN/Creatinine Ratio 9.0 L (14-18) Glucose 100 (74-106) mg/dL Calcium 9.4 (8.5-10.1) mg/dL Magnesium 2.3 (1.8-2.4) mg/dl Total Bilirubin 0.5 (0.2-1.0) mg/dL AST 30 (15-37) U/L ALT 45 (14-59) U/L Alkaline Phosphatase 56 (46-116) U/L Troponin I < 0.017 (0.00-0.056) ng/mL C-Reactive Protein 1.2 H* (<1.0) mg/dL Total Protein 8.8 H (6.4-8.2) g/dl Albumin 3.6 (3.4-5.0) g/dl Globulin 5.2 gm/dL Albumin/Globulin Ratio 0.7 L (1-2) TSH 3rd Generation 1.429 (0.358-3.74) uIU/mL HCG, Qual (NEGATIVE) Urine Color (Yellow) Urine Appearance (Clear) Urine pH (5.0-8.0) Ur Specific [place] (1.005-1.030) Urine Protein (Negative) Urine Glucose (UA) (Negative) Urine Ketones (Negative) Urine Occult Blood (Negative) Urine Nitrite (Negative) Urine Bilirubin (Negative) Urine Urobilinogen (0.2-1.0) Ur Leukocyte Esterase (Negative) Urine RBC (0-5) /hpf Urine WBC (0-5) /hpf Ur Epithelial Cells (0-5) /hpf Urine Bacteria (FEW) /hpf Urine Mucus (FEW) /hpf Urine Opiates Screen (NEGATIVE) Ur Buprenorphine Scrn (NEGATIVE) Ur Oxycodone Screen (NEGATIVE) Urine Methadone Screen (NEGATIVE) Ur Propoxyphene Screen (NEGATIVE) Ur Barbiturates Screen (NEGATIVE) Ur Tricyclics Screen (NEGATIVE) Ur Phencyclidine Scrn (NEGATIVE) Ur Amphetamine Screen (NEGATIVE) U Methamphetamines Scrn (NEGATIVE) U Benzodiazepines Scrn (NEGATIVE) U Cocaine Metab Screen (NEGATIVE) U Marijuana (THC) Screen (NEGATIVE) Ethyl Alcohol 0.00 (0.00) gm% C.difficile 027-NAP1-B1 C. difficile Tox (PCR) 08/11/18 08/11/18 08/11/18 Range/Units 08:03 08:03 08:15 WBC (3.98-10.04) K/mm3 RBC (3.98-5.22) M/mm3 Hgb (11.2-15.7) gm/L Hct (34.1-44.9) % MCV (79.4-94.8) fl MCH (25.6-32.2) pg MCHC (32.2-35.5) g/dl RDW Std Deviation (36.4-46.3) fL Plt Count (182-369) K/mm3 MPV (9.4-12.3) fl Neut % (Auto) (34.0-71.1) % Lymph % (Auto) (19.3-51.7) % [place] % (Auto) (4.7-12.5) % Eos % (Auto) (0.7-5.8) Baso % (Auto) (0.1-1.2) % Neut # (Auto) (1.56-6.13) K/mm3 Lymph # (Auto) (1.18-3.74) K/mm3 [place] # (Auto) (0.24-0.36) K/mm3 Eos # (Auto) (0.04-0.36) K/mm3 Baso # (Auto) (0.01-0.08) K/mm3 ESR (0-20) mm/hr Sodium (136-145) mEq/L Potassium (3.5-5.1) mEq/L Chloride (98-107) mEq/L Carbon Dioxide (21-32) mEq/L Anion Gap (5-15) BUN (7-18) mg/dL Creatinine (0.55-1.02) mg/dL Est Cr Clr Drug Dosing Estimated GFR (MDRD) (>60) mL/min BUN/Creatinine Ratio (14-18) Glucose (74-106) mg/dL Calcium (8.5-10.1) mg/dL Magnesium (1.8-2.4) mg/dl Total Bilirubin (0.2-1.0) mg/dL AST (15-37) U/L ALT (14-59) U/L Alkaline Phosphatase (46-116) U/L Troponin I (0.00-0.056) ng/mL C-Reactive Protein (<1.0) mg/dL Total Protein (6.4-8.2) g/dl Albumin (3.4-5.0) g/dl Globulin gm/dL Albumin/Globulin Ratio (1-2) TSH 3rd Generation (0.358-3.74) uIU/mL HCG, Qual (NEGATIVE) Urine Color Yellow (Yellow) Urine Appearance Clear (Clear) Urine pH 7.5 (5.0-8.0) Ur Specific [place] 1.015 (1.005-1.030) Urine Protein Negative (Negative) Urine Glucose (UA) Negative (Negative) Urine Ketones Trace H (Negative) Urine Occult Blood Negative (Negative) Urine Nitrite Negative (Negative) Urine Bilirubin Negative (Negative) Urine Urobilinogen 0.2 (0.2-1.0) Ur Leukocyte Esterase Negative (Negative) Urine RBC 0-5 (0-5) /hpf Urine WBC 0-5 (0-5) /hpf Ur Epithelial Cells 0-5 (0-5) /hpf Urine Bacteria Rare (FEW) /hpf Urine Mucus Few (FEW) /hpf Urine Opiates Screen Negative (NEGATIVE) Ur Buprenorphine Scrn Negative (NEGATIVE) Ur Oxycodone Screen Negative (NEGATIVE) Urine Methadone Screen Negative (NEGATIVE) Ur Propoxyphene Screen Negative (NEGATIVE) Ur Barbiturates Screen Negative (NEGATIVE) Ur Tricyclics Screen Negative (NEGATIVE) Ur Phencyclidine Scrn Negative (NEGATIVE) Ur Amphetamine Screen Negative (NEGATIVE) U Methamphetamines Scrn Negative (NEGATIVE) U Benzodiazepines Scrn Negative (NEGATIVE) U Cocaine Metab Screen Negative (NEGATIVE) U Marijuana (THC) Screen Negative (NEGATIVE) Ethyl Alcohol (0.00) gm% C.difficile 027-NAP1-B1 Presumptive negative C. difficile Tox (PCR) Negative 08/11/18 Range/Units 08:35 WBC (3.98-10.04) K/mm3 RBC (3.98-5.22) M/mm3 Hgb (11.2-15.7) gm/L Hct (34.1-44.9) % MCV (79.4-94.8) fl MCH (25.6-32.2) pg MCHC (32.2-35.5) g/dl RDW Std Deviation (36.4-46.3) fL Plt Count (182-369) K/mm3 MPV (9.4-12.3) fl Neut % (Auto) (34.0-71.1) % Lymph % (Auto) (19.3-51.7) % [place] % (Auto) (4.7-12.5) % Eos % (Auto) (0.7-5.8) Baso % (Auto) (0.1-1.2) % Neut # (Auto) (1.56-6.13) K/mm3 Lymph # (Auto) (1.18-3.74) K/mm3 [place] # (Auto) (0.24-0.36) K/mm3 Eos # (Auto) (0.04-0.36) K/mm3 Baso # (Auto) (0.01-0.08) K/mm3 ESR (0-20) mm/hr Sodium (136-145) mEq/L Potassium (3.5-5.1) mEq/L Chloride (98-107) mEq/L Carbon Dioxide (21-32) mEq/L Anion Gap (5-15) BUN (7-18) mg/dL Creatinine (0.55-1.02) mg/dL Est Cr Clr Drug Dosing Estimated GFR (MDRD) (>60) mL/min BUN/Creatinine Ratio (14-18) Glucose (74-106) mg/dL Calcium (8.5-10.1) mg/dL Magnesium (1.8-2.4) mg/dl Total Bilirubin (0.2-1.0) mg/dL AST (15-37) U/L ALT (14-59) U/L Alkaline Phosphatase (46-116) U/L Troponin I (0.00-0.056) ng/mL C-Reactive Protein (<1.0) mg/dL Total Protein (6.4-8.2) g/dl Albumin (3.4-5.0) g/dl Globulin gm/dL Albumin/Globulin Ratio (1-2) TSH 3rd Generation (0.358-3.74) uIU/mL HCG, Qual Negative (NEGATIVE) Urine Color (Yellow) Urine Appearance (Clear) Urine pH (5.0-8.0) Ur Specific [place] (1.005-1.030) Urine Protein (Negative) Urine Glucose (UA) (Negative) Urine Ketones (Negative) Urine Occult Blood (Negative) Urine Nitrite (Negative) Urine Bilirubin (Negative) Urine Urobilinogen (0.2-1.0) Ur Leukocyte Esterase (Negative) Urine RBC (0-5) /hpf Urine WBC (0-5) /hpf Ur Epithelial Cells (0-5) /hpf Urine Bacteria (FEW) /hpf Urine Mucus (FEW) /hpf Urine Opiates Screen (NEGATIVE) Ur Buprenorphine Scrn (NEGATIVE) Ur Oxycodone Screen (NEGATIVE) Urine Methadone Screen (NEGATIVE) Ur Propoxyphene Screen (NEGATIVE) Ur Barbiturates Screen (NEGATIVE) Ur Tricyclics Screen (NEGATIVE) Ur Phencyclidine Scrn (NEGATIVE) Ur Amphetamine Screen (NEGATIVE) U Methamphetamines Scrn (NEGATIVE) U Benzodiazepines Scrn (NEGATIVE) U Cocaine Metab Screen (NEGATIVE) U Marijuana (THC) Screen (NEGATIVE) Ethyl Alcohol (0.00) gm% C.difficile 027-NAP1-B1 C. difficile Tox (PCR) Result Diagrams: 08/11/18 07:55 08/11/18 07:55 - Problem List (1) Weakness generalized SNOMED Code(s): 57032423 ICD Code: R53.1 - WEAKNESS Status: Acute Current Visit: No (2) Pressure in head SNOMED Code(s): 01468020, 59952940 ICD Code: R51 - HEADACHE Status: Acute Current Visit: Yes (3) Nausea, vomiting, and diarrhea SNOMED Code(s): 2222847 ICD Code: R11.2 - NAUSEA WITH VOMITING, UNSPECIFIED; R19.7 - DIARRHEA, UNSPECIFIED Status: Acute Current Visit: Yes (4) Obesity SNOMED Code(s): 291575811, 317434581 ICD Code: E66.9 - OBESITY, UNSPECIFIED Status: Acute Current Visit: Yes Qualifiers: Obesity classification: adult class 3 (BMI >= 40) Body mass index: BMI 45.0 -49.9 Problem List Initiated/Reviewed/Updated: Yes Orders Last 24hrs: Active Orders 24 hr Category Date Time Status Cardiac Monitoring [RC] . DIRECTED Care 08/11/18 07:26 Active EKG Documentation Completion [RC] STAT Care 08/11/18 07:28 Active Peripheral IV Care [RC] . DIRECTED Care 08/11/18 07:28 Active CULTURE STOOL + SHIGATOX [RM] Stat Lab 08/11/18 08:15 Received DRUG SCREEN, URINE [URCHEM] Stat Lab 08/11/18 08:03 Ordered OVA & PARASITES BY IMMUNOASSAY [MREF] Stat Lab 08/11/18 08:15 Received THYROXINE (T4) [REF] Stat Lab 08/11/18 08:35 Received UA W/MICROSCOPIC [URIN] Stat Lab 08/11/18 08:03 Ordered Sodium Chloride 0.9% [Normal Saline] 1,000 ml Med 08/11/18 07:30 Active IV ASDIRECTED Sodium Chloride 0.9% [Saline Flush] Med 08/11/18 07:26 Active 10 ml FLUSH ASDIRECTED PRN Peripheral IV Insertion Adult [OM.PC] Stat Oth 08/11/18 07:26 Ordered Medication Orders Sodium Chloride (Normal Saline) 1,000 mls @ 125 mls/hr IV ASDIRECTED DANK Last Admin: 08/11/18 07:55 Dose: 125 mls/hr Sodium Chloride (Saline Flush) 10 ml FLUSH ASDIRECTED PRN PRN Reason: Keep Vein Open Last Admin: 08/11/18 07:55 Dose: 10 ml Assessment/Plan Comment:: Intractable nausea, vomiting, diarrhea * Unclear etiology * Benign workup - negative c.dif * Stool culture for ova, parasites pending * Denies travel, unusual diet/drink, recent antibiotic use, sick contacts * Supportive care * Anti-emetic PRN 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 Dr. Hill has examined the patient and reviewed the note. <Manuelito Hill T - Last Filed: 08/11/18 18:24> H&P History of Present Illness - General Admit Problem/Dx: Admission Diagnosis/Problem Admission Diagnosis/Problem Weakness Exam - Vital Signs Vital Signs: Last Vital Signs Temp 36.4 C 08/11/18 16:30 Pulse 78 08/11/18 16:30 Resp 16 08/11/18 16:30 BP 131/67 08/11/18 16:30 Pulse Ox 95 08/11/18 16:30 - Patient Data Lab Results Last 24 hrs: Laboratory Results - last 24 hr 08/11/18 08/11/18 08/11/18 Range/Units 07:55 07:55 07:55 WBC 8.77 (3.98-10.04) K/mm3 RBC 4.70 (3.98-5.22) M/mm3 Hgb 13.1 (11.2-15.7) gm/L Hct 39.6 (34.1-44.9) % MCV 84.3 (79.4-94.8) fl MCH 27.9 (25.6-32.2) pg MCHC 33.1 (32.2-35.5) g/dl RDW Std Deviation 39.1 (36.4-46.3) fL Plt Count 317 (182-369) K/mm3 MPV 10.3 (9.4-12.3) fl Neut % (Auto) 56.7 (34.0-71.1) % Lymph % (Auto) 36.0 (19.3-51.7) % [place] % (Auto) 6.8 (4.7-12.5) % Eos % (Auto) 0.2 L (0.7-5.8) Baso % (Auto) 0.2 (0.1-1.2) % Neut # (Auto) 4.96 (1.56-6.13) K/mm3 Lymph # (Auto) 3.16 (1.18-3.74) K/mm3 [place] # (Auto) 0.60 H (0.24-0.36) K/mm3 Eos # (Auto) 0.02 L (0.04-0.36) K/mm3 Baso # (Auto) 0.02 (0.01-0.08) K/mm3 ESR 47 H (0-20) mm/hr Sodium 139 (136-145) mEq/L Potassium 3.9 (3.5-5.1) mEq/L Chloride 104 (98-107) mEq/L Carbon Dioxide 25 (21-32) mEq/L Anion Gap 13.9 (5-15) BUN 9 (7-18) mg/dL Creatinine 1.0 (0.55-1.02) mg/dL Est Cr Clr Drug Dosing TNP Estimated GFR (MDRD) > 60 (>60) mL/min BUN/Creatinine Ratio 9.0 L (14-18) Glucose 100 (74-106) mg/dL Calcium 9.4 (8.5-10.1) mg/dL Magnesium 2.3 (1.8-2.4) mg/dl Total Bilirubin 0.5 (0.2-1.0) mg/dL AST 30 (15-37) U/L ALT 45 (14-59) U/L Alkaline Phosphatase 56 (46-116) U/L Troponin I < 0.017 (0.00-0.056) ng/mL C-Reactive Protein 1.2 H* (<1.0) mg/dL Total Protein 8.8 H (6.4-8.2) g/dl Albumin 3.6 (3.4-5.0) g/dl Globulin 5.2 gm/dL Albumin/Globulin Ratio 0.7 L (1-2) TSH 3rd Generation 1.429 (0.358-3.74) uIU/mL HCG, Qual (NEGATIVE) Urine Color (Yellow) Urine Appearance (Clear) Urine pH (5.0-8.0) Ur Specific [place] (1.005-1.030) Urine Protein (Negative) Urine Glucose (UA) (Negative) Urine Ketones (Negative) Urine Occult Blood (Negative) Urine Nitrite (Negative) Urine Bilirubin (Negative) Urine Urobilinogen (0.2-1.0) Ur Leukocyte Esterase (Negative) Urine RBC (0-5) /hpf Urine WBC (0-5) /hpf Ur Epithelial Cells (0-5) /hpf Urine Bacteria (FEW) /hpf Urine Mucus (FEW) /hpf Urine Opiates Screen (NEGATIVE) Ur Buprenorphine Scrn (NEGATIVE) Ur Oxycodone Screen (NEGATIVE) Urine Methadone Screen (NEGATIVE) Ur Propoxyphene Screen (NEGATIVE) Ur Barbiturates Screen (NEGATIVE) Ur Tricyclics Screen (NEGATIVE) Ur Phencyclidine Scrn (NEGATIVE) Ur Amphetamine Screen (NEGATIVE) U Methamphetamines Scrn (NEGATIVE) U Benzodiazepines Scrn (NEGATIVE) U Cocaine Metab Screen (NEGATIVE) U Marijuana (THC) Screen (NEGATIVE) Ethyl Alcohol 0.00 (0.00) gm% C.difficile 027-NAP1-B1 C. difficile Tox (PCR) 08/11/18 08/11/18 08/11/18 Range/Units 08:03 08:03 08:15 WBC (3.98-10.04) K/mm3 RBC (3.98-5.22) M/mm3 Hgb (11.2-15.7) gm/L Hct (34.1-44.9) % MCV (79.4-94.8) fl MCH (25.6-32.2) pg MCHC (32.2-35.5) g/dl RDW Std Deviation (36.4-46.3) fL Plt Count (182-369) K/mm3 MPV (9.4-12.3) fl Neut % (Auto) (34.0-71.1) % Lymph % (Auto) (19.3-51.7) % [place] % (Auto) (4.7-12.5) % Eos % (Auto) (0.7-5.8) Baso % (Auto) (0.1-1.2) % Neut # (Auto) (1.56-6.13) K/mm3 Lymph # (Auto) (1.18-3.74) K/mm3 [place] # (Auto) (0.24-0.36) K/mm3 Eos # (Auto) (0.04-0.36) K/mm3 Baso # (Auto) (0.01-0.08) K/mm3 ESR (0-20) mm/hr Sodium (136-145) mEq/L Potassium (3.5-5.1) mEq/L Chloride (98-107) mEq/L Carbon Dioxide (21-32) mEq/L Anion Gap (5-15) BUN (7-18) mg/dL Creatinine (0.55-1.02) mg/dL Est Cr Clr Drug Dosing Estimated GFR (MDRD) (>60) mL/min BUN/Creatinine Ratio (14-18) Glucose (74-106) mg/dL Calcium (8.5-10.1) mg/dL Magnesium (1.8-2.4) mg/dl Total Bilirubin (0.2-1.0) mg/dL AST (15-37) U/L ALT (14-59) U/L Alkaline Phosphatase (46-116) U/L Troponin I (0.00-0.056) ng/mL C-Reactive Protein (<1.0) mg/dL Total Protein (6.4-8.2) g/dl Albumin (3.4-5.0) g/dl Globulin gm/dL Albumin/Globulin Ratio (1-2) TSH 3rd Generation (0.358-3.74) uIU/mL HCG, Qual (NEGATIVE) Urine Color Yellow (Yellow) Urine Appearance Clear (Clear) Urine pH 7.5 (5.0-8.0) Ur Specific [place] 1.015 (1.005-1.030) Urine Protein Negative (Negative) Urine Glucose (UA) Negative (Negative) Urine Ketones Trace H (Negative) Urine Occult Blood Negative (Negative) Urine Nitrite Negative (Negative) Urine Bilirubin Negative (Negative) Urine Urobilinogen 0.2 (0.2-1.0) Ur Leukocyte Esterase Negative (Negative) Urine RBC 0-5 (0-5) /hpf Urine WBC 0-5 (0-5) /hpf Ur Epithelial Cells 0-5 (0-5) /hpf Urine Bacteria Rare (FEW) /hpf Urine Mucus Few (FEW) /hpf Urine Opiates Screen Negative (NEGATIVE) Ur Buprenorphine Scrn Negative (NEGATIVE) Ur Oxycodone Screen Negative (NEGATIVE) Urine Methadone Screen Negative (NEGATIVE) Ur Propoxyphene Screen Negative (NEGATIVE) Ur Barbiturates Screen Negative (NEGATIVE) Ur Tricyclics Screen Negative (NEGATIVE) Ur Phencyclidine Scrn Negative (NEGATIVE) Ur Amphetamine Screen Negative (NEGATIVE) U Methamphetamines Scrn Negative (NEGATIVE) U Benzodiazepines Scrn Negative (NEGATIVE) U Cocaine Metab Screen Negative (NEGATIVE) U Marijuana (THC) Screen Negative (NEGATIVE) Ethyl Alcohol (0.00) gm% C.difficile 027-NAP1-B1 Presumptive negative C. difficile Tox (PCR) Negative 08/11/18 Range/Units 08:35 WBC (3.98-10.04) K/mm3 RBC (3.98-5.22) M/mm3 Hgb (11.2-15.7) gm/L Hct (34.1-44.9) % MCV (79.4-94.8) fl MCH (25.6-32.2) pg MCHC (32.2-35.5) g/dl RDW Std Deviation (36.4-46.3) fL Plt Count (182-369) K/mm3 MPV (9.4-12.3) fl Neut % (Auto) (34.0-71.1) % Lymph % (Auto) (19.3-51.7) % [place] % (Auto) (4.7-12.5) % Eos % (Auto) (0.7-5.8) Baso % (Auto) (0.1-1.2) % Neut # (Auto) (1.56-6.13) K/mm3 Lymph # (Auto) (1.18-3.74) K/mm3 [place] # (Auto) (0.24-0.36) K/mm3 Eos # (Auto) (0.04-0.36) K/mm3 Baso # (Auto) (0.01-0.08) K/mm3 ESR (0-20) mm/hr Sodium (136-145) mEq/L Potassium (3.5-5.1) mEq/L Chloride (98-107) mEq/L Carbon Dioxide (21-32) mEq/L Anion Gap (5-15) BUN (7-18) mg/dL Creatinine (0.55-1.02) mg/dL Est Cr Clr Drug Dosing Estimated GFR (MDRD) (>60) mL/min BUN/Creatinine Ratio (14-18) Glucose (74-106) mg/dL Calcium (8.5-10.1) mg/dL Magnesium (1.8-2.4) mg/dl Total Bilirubin (0.2-1.0) mg/dL AST (15-37) U/L ALT (14-59) U/L Alkaline Phosphatase (46-116) U/L Troponin I (0.00-0.056) ng/mL C-Reactive Protein (<1.0) mg/dL Total Protein (6.4-8.2) g/dl Albumin (3.4-5.0) g/dl Globulin gm/dL Albumin/Globulin Ratio (1-2) TSH 3rd Generation (0.358-3.74) uIU/mL HCG, Qual Negative (NEGATIVE) Urine Color (Yellow) Urine Appearance (Clear) Urine pH (5.0-8.0) Ur Specific [place] (1.005-1.030) Urine Protein (Negative) Urine Glucose (UA) (Negative) Urine Ketones (Negative) Urine Occult Blood (Negative) Urine Nitrite (Negative) Urine Bilirubin (Negative) Urine Urobilinogen (0.2-1.0) Ur Leukocyte Esterase (Negative) Urine RBC (0-5) /hpf Urine WBC (0-5) /hpf Ur Epithelial Cells (0-5) /hpf Urine Bacteria (FEW) /hpf Urine Mucus (FEW) /hpf Urine Opiates Screen (NEGATIVE) Ur Buprenorphine Scrn (NEGATIVE) Ur Oxycodone Screen (NEGATIVE) Urine Methadone Screen (NEGATIVE) Ur Propoxyphene Screen (NEGATIVE) Ur Barbiturates Screen (NEGATIVE) Ur Tricyclics Screen (NEGATIVE) Ur Phencyclidine Scrn (NEGATIVE) Ur Amphetamine Screen (NEGATIVE) U Methamphetamines Scrn (NEGATIVE) U Benzodiazepines Scrn (NEGATIVE) U Cocaine Metab Screen (NEGATIVE) U Marijuana (THC) Screen (NEGATIVE) Ethyl Alcohol (0.00) gm% C.difficile [id number] C. difficile Tox (PCR) Result Diagrams: 08/11/18 07:55 08/11/18 07:55 Orders Last 24hrs: Active Orders 24 hr Category Date Time Status Patient Status [ADT] Routine ADT 08/11/18 15:13 Active Height and Weight [RC] 04 Care 08/11/18 15:52 Active Intake and Output [RC] 04,16 Care 08/11/18 15:53 Active VTE/DVT Education [RC] 09, Care 08/11/18 15:52 Active Vital Signs [RC] Q4HR Care 08/11/18 15:52 Active Consult to Case Management/Hatchery Manager [CONS] Cons 08/11/18 15:52 Active Routine Consult to Label Sewer [CONS] Routine Cons 08/11/18 15:52 Active OT Evaluation and Treatment [CONS] Routine Cons 08/11/18 15:52 Active PT Evaluation and Treatment [CONS] Routine Cons 08/11/18 15:52 Active Heart Healthy Diet [DIET] Diet 08/11/18 Dinner Active BASIC METABOLIC PANEL,BMP [CHEM] AM Lab 08/12/18 05:11 Ordered BASIC METABOLIC PANEL,BMP [CHEM] AM Lab 08/13/18 05:11 Ordered BASIC METABOLIC PANEL,BMP [CHEM] AM Lab 08/14/18 05:11 Ordered C-REACTIVE PROTEIN [CHEM] AM Lab 08/12/18 05:11 Ordered C-REACTIVE PROTEIN [CHEM] AM Lab 08/13/18 05:11 Ordered C-REACTIVE PROTEIN [CHEM] AM Lab 08/14/18 05:11 Ordered CBC WITH AUTO DIFF [HEME] AM Lab 08/12/18 05:11 Ordered CBC WITH AUTO DIFF [HEME] AM Lab 08/13/18 05:11 Ordered CBC WITH AUTO DIFF [HEME] AM Lab 08/14/18 05:11 Ordered CULTURE STOOL + SHIGATOX [RM] Stat Lab 08/11/18 08:15 Received DRUG SCREEN, URINE [URCHEM] Stat Lab 08/11/18 08:03 Ordered MAGNESIUM [CHEM] AM Lab 08/12/18 05:11 Ordered MAGNESIUM [CHEM] AM Lab 08/13/18 05:11 Ordered MAGNESIUM [CHEM] AM Lab 08/14/18 05:11 Ordered OVA & PARASITES BY IMMUNOASSAY [MREF] Stat Lab 08/11/18 08:15 Received SEDIMENTATION RATE AUTO [HEME] AM Lab 08/12/18 05:11 Ordered SEDIMENTATION RATE AUTO [HEME] AM Lab 08/13/18 05:11 Ordered SEDIMENTATION RATE AUTO [HEME] AM Lab 08/14/18 05:11 Ordered THYROXINE (T4) [REF] Stat Lab 08/11/18 08:35 Received UA W/MICROSCOPIC [URIN] Stat Lab 08/11/18 08:03 Ordered Acetaminophen [Tylenol] Med 08/11/18 15:52 Active 650 mg PO Q4H PRN Acetaminophen/Butalbital/Caff [Fioricet 325-50-40 MG] Med 08/11/18 16:07 Active 2 tab PO Q6H PRN Acetaminophen/HYDROcodone [[place] 325-5 MG] Med 08/11/18 15:52 Active 1 tab PO Q4H PRN Albuterol/Ipratropium [DuoNeb 3.0-0.5 MG/3 ML] Med 08/11/18 15:52 Active 3 ml NEB Q4H PRN Bisacodyl [Dulcolax] Med 08/11/18 15:52 Active 5 mg PO DAILY PRN Docusate Sodium [Colace] Med 08/11/18 15:52 Active 100 mg PO BID PRN Docusate Sodium/Sennosides [Senna Plus] Med 08/11/18 15:52 Active 1 tab PO BID PRN Furosemide [Lasix] Med 08/12/18 09:00 Active 40 mg PO DAILY HYDROmorphone [Dilaudid] Med 08/11/18 15:52 Active 0.25 mg IVPUSH Q2H PRN LORazepam [Ativan] Med 08/11/18 15:52 Active 1 mg IV Q6H PRN LORazepam [Ativan] Med 08/11/18 15:51 Active 2 mg IVPUSH Q4H PRN Magnesium Rep Pharmacy to Dose [Pharmacy to Dose - Med 08/11/18 16:00 Pending Magnesium Replacement] 1 dose .XX ASDIRECTED Metoprolol Tartrate [Lopressor] Med 08/11/18 15:51 Active 5 mg IVPUSH Q4H PRN Nicotine [Habitrol] Med 08/11/18 15:51 Active 21 mg TRDERM DAILY PRN Ondansetron [Zofran] Med 08/11/18 15:52 Active 4 mg IV Q6H PRN Polyethylene Glycol 3350 [MiraLAX] Med 08/11/18 15:52 Active 17 gm PO DAILY PRN Potassium Rep Pharmacy to Dose [Pharmacy to Dose - Med 08/11/18 16:00 Pending Potassium Replacement] 1 dose .XX ASDIRECTED Promethazine [Phenergan] 12.5 mg Med 08/11/18 15:52 Active Sodium Chloride 0.9% [Normal Saline] 50 ml IV Q6H Remove Patch Med 08/12/18 09:00 Active 1 ea TRDERM DAILY PRN Remove Patch Med 08/14/18 16:00 Once 1 ea TRDERM ONETIME ONE Sodium Chloride 0.9% [Normal Saline] 1,000 ml Med 08/11/18 07:30 Active IV ASDIRECTED Temazepam [Restoril] Med 08/11/18 15:52 Active 15 mg PO BEDTIME PRN acetaZOLAMIDE [Diamox] Med 08/11/18 21:00 Active 250 mg PO BID hydrALAZINE [Apresoline] Med 08/11/18 15:51 Active 20 mg IVPUSH Q4H PRN Peripheral IV Insertion Adult [OM.PC] Stat Oth 08/11/18 07:26 Ordered Resuscitation Status Routine Resus Stat 08/11/18 15:52 Ordered Medication Orders Acetaminophen (Tylenol) 650 mg PO Q4H PRN PRN Reason: Pain (Mild 1-3)/fever Acetaminophen/Butalbital/Caffeine (Fioricet 325-50-40 Mg) 2 tab PO Q6H PRN PRN Reason: Headache Hydrocodone Bitart/Acetaminophen ([place] 325-5 Mg) 1 tab PO Q4H PRN PRN Reason: Pain (moderate 4-6) Acetazolamide (Diamox) 250 mg PO BID [facility] Albuterol/Ipratropium (Duoneb 3.0-0.5 Mg/3 Ml) 3 ml NEB Q4H PRN PRN Reason: Shortness Of Breath/wheezing Bisacodyl (Dulcolax) 5 mg PO DAILY PRN PRN Reason: Constipation Docusate Sodium (Colace) 100 mg PO BID PRN PRN Reason: Constipation Furosemide (Lasix) 40 mg PO DAILY [facility] Hydralazine HCl (Apresoline) 20 mg IVPUSH Q4H PRN PRN Reason: Hypertension Hydromorphone HCl (Dilaudid) 0.25 mg IVPUSH Q2H PRN PRN Reason: Pain (severe 7-10) Sodium Chloride (Normal Saline) 1,000 mls @ 125 mls/hr IV ASDIRECTED [facility] Last Admin: 08/11/18 07:55 Dose: 125 mls/hr Promethazine HCl 12.5 mg/ (Sodium Chloride) 50.5 mls @ 100 mls/hr IV Q6H PRN PRN Reason: Nausea/Vomiting Lorazepam (Ativan) 2 mg IVPUSH Q4H PRN PRN Reason: Seizures Lorazepam (Ativan) 1 mg IV Q6H PRN PRN Reason: Anxiety Magnesium Sulfate (Pharmacy To Dose - Magnesium Replacement) 1 dose .XX ASDIRECTED [facility] Metoprolol Tartrate (Lopressor) 5 mg IVPUSH Q4H PRN PRN Reason: Tachycardia Miscellaneous Information (Remove Patch) 1 ea TRDERM DAILY PRN PRN Reason: IF PATCH WAS USED Miscellaneous Information (Remove Patch) 1 ea TRDERM ONETIME ONE Stop: 08/14/18 16:01 Nicotine (Habitrol) 21 mg TRDERM DAILY PRN PRN Reason: Nicotine Dependence Ondansetron HCl (Zofran) 4 mg IV Q6H PRN PRN Reason: Nausea/Vomiting Polyethylene Glycol (Miralax) 17 gm PO DAILY PRN PRN Reason: Constipation Potassium Chloride (Pharmacy To Dose - Potassium Replacement) 1 dose .XX ASDIRECTED DANK Senna/Docusate Sodium (Senna Plus) 1 tab PO BID PRN PRN Reason: Constipation Temazepam (Restoril) 15 mg PO BEDTIME PRN PRN Reason: Sleep Assessment/Plan Comment:: The patient was seen and examined at bedside in concert with the medical student. The admission assessment and plans were discussed and agreed upon with me. Any changes of recommendation will be based on the patient's course. At this time, she reports no visual loss, changes or eye pain. She still has headaches but denies any neurological deficits. Neurological exam was benign. Some of her infectious are currently pending in status. At this point, no need for steroid unless she has an cute visual changes.
[2018-08-11] MEDS ORDERED: Furosemide 40 MG Tab PO ONE (15:51)
[2018-08-11] MEDS ORDERED: Metoprolol Tartrate 5 MG/5 ML SDV IVPUSH PRN (15:51)
[2018-08-11] MEDS ORDERED: LORazepam 2 MG/ML SDV IVPUSH PRN (15:51)
[2018-08-11] MEDS ORDERED: hydrALAZINE 20 MG/ML SDV IVPUSH PRN (15:51)
[2018-08-11] MEDS ORDERED: Nicotine 21 MG/24 Hr Patch TRDERM PRN (15:51)
[2018-08-11] MEDS ORDERED: acetaZOLAMIDE 250 MG Tab PO ONE (15:51)
[2018-08-11] MEDS ORDERED: Acetaminophen 325 MG Tab PO PRN (15:52)
[2018-08-11] MEDS ORDERED: Ondansetron 4 MG/2 ML SDV IV PRN (15:52)
[2018-08-11] MEDS ORDERED: Acetaminophen/HYDROcodone 325-5 MG Tab PO PRN (15:52)
[2018-08-11] MEDS ORDERED: Docusate Sodium 100 MG Cap PO PRN (15:52)
[2018-08-11] MEDS ORDERED: Polyethylene Glycol 3350 Powder 17 GM Packet PO PRN (15:52)
[2018-08-11] MEDS ORDERED: Albuterol/Ipratropium 3.0-0.5 MG/3 ML Neb Soln NEB PRN (15:52)
[2018-08-11] MEDS ORDERED: Promethazine 12.5 MG in Sodium Chloride 0.9% 50 ML IV PRN (15:52)
[2018-08-11] MEDS ORDERED: HYDROmorphone 0.5 MG/0.5 ML SYRINGE IVPUSH PRN (15:52)
[2018-08-11] MEDS ORDERED: Temazepam 15 MG Cap PO PRN (15:52)
[2018-08-11] MEDS ORDERED: Bisacodyl 5 MG Tab PO PRN (15:52)
[2018-08-11] MEDS ORDERED: Scopolamine 1.5 MG Transdermal Patch TRDERM ONE (15:59)
[2018-08-11] MEDS ORDERED: Acetaminophen/Butalbital/Caffeine 325-50-40 MG Tab PO PRN (16:07)
[2018-08-11] MEDS: LORazepam 2 MG/ML SDV IV PRN (20:30)
[2018-08-11] MEDS: acetaZOLAMIDE 250 MG Tab PO SCH (22:14)
[2018-08-12] MEDS: LORazepam 2 MG/ML SDV IV PRN (04:43)
[2018-08-12] MEDS ORDERED: HYDROmorphone 0.5 MG/0.5 ML Syringe IVPUSH PRN (07:15)
[2018-08-12] MEDS: acetaZOLAMIDE 250 MG Tab PO SCH (08:31)
[2018-08-12] MEDS ORDERED: Furosemide 40 MG Tab PO SCH (09:00)
--- NOTE | 2018-08-12 11:01 | PCM.PN ---
<Barbara Arredondo - Last Filed: 08/12/18 12:27> - General Info Date of Service: 08/12/18 Admission Dx/Problem (Free Text): Admission Diagnosis/Problem Admission Diagnosis/Problem Weakness Functional Status: Reports: Pain Controlled, Tolerating Diet, Ambulating, Urinating - Review of Systems General: Reports: Weakness, Fatigue. Denies: Fever HEENT: Reports: Headaches, Visual Changes (photophobia; difficulty focusing vision ) Pulmonary: Reports: No Symptoms Cardiovascular: Reports: No Symptoms. Denies: Chest Pain Gastrointestinal: Reports: Nausea, Other (yellow stools). Denies: Abdominal Pain, Diarrhea, Vomiting Genitourinary: Reports: No Symptoms Musculoskeletal: Reports: Leg Pain, Foot Pain Skin: Reports: No Symptoms Neurological: Reports: Dizziness, Headache, Numbness, Tingling, Difficulty Walking, Weakness Psychiatric: Reports: No Symptoms Systems Review Comment:: Patient is feeling better today. She slept well through the night after receiving ativan. Her appetite is improved and she is eating well. She had mild nausea this morning after breakfast but no vomiting or diarrhea. She reports that her stools have a yellow color. Her headache and head pressure have improved but she is having occasional brief, sharp pains in her head. These pains are exacerbated by light and noise. She reports tingling, numbness, and a vibration sensation in her head, neck, face, hands, legs, and feet. She is still having some fatigue and weakness but is now able to sit up and ambulate short distances. She denies visual changes initially but later admits she had difficulty reading her menu and that light from the tv and fast movement are bothersome to her. She later reports she sometimes sees purple spots in her vision. - Patient Data Vitals - Most Recent: Last Vital Signs Temp 97.9 F 08/12/18 07:33 Pulse 76 08/12/18 07:33 Resp 22 H 08/12/18 07:33 BP 131/67 08/12/18 07:33 Pulse Ox 100 08/12/18 07:33 Weight - Most Recent: 133.073 kg I&O - Last 24 Hours: Intake & Output 08/11/18 08/12/18 08/12/18 22:59 06:59 14:59 Intake Total 180 1200 120 Output Total 2800 Balance 180 -1600 120 Lab Results Last 24 Hours: Laboratory Results - last 24 hr 08/12/18 08/12/18 08/12/18 Range/Units 06:25 06:25 06:25 WBC 8.86 (3.98-10.04) K/mm3 RBC 4.72 (3.98-5.22) M/mm3 Hgb 13.3 (11.2-15.7) gm/L Hct 40.3 (34.1-44.9) % MCV 85.4 (79.4-94.8) fl MCH 28.2 (25.6-32.2) pg MCHC 33.0 (32.2-35.5) g/dl RDW Std Deviation 40.4 (36.4-46.3) fL Plt Count 312 (182-369) K/mm3 MPV 10.2 (9.4-12.3) fl Neut % (Auto) 58.4 (34.0-71.1) % Lymph % (Auto) 33.7 (19.3-51.7) % [place] % (Auto) 6.7 (4.7-12.5) % Eos % (Auto) 0.8 (0.7-5.8) Baso % (Auto) 0.3 (0.1-1.2) % Neut # (Auto) 5.17 (1.56-6.13) K/mm3 Lymph # (Auto) 2.99 (1.18-3.74) K/mm3 [place] # (Auto) 0.59 H (0.24-0.36) K/mm3 Eos # (Auto) 0.07 (0.04-0.36) K/mm3 Baso # (Auto) 0.03 (0.01-0.08) K/mm3 ESR 44 H (0-20) mm/hr Sodium 137 (136-145) mEq/L Potassium 3.7 (3.5-5.1) mEq/L Chloride 104 (98-107) mEq/L Carbon Dioxide 22 (21-32) mEq/L Anion Gap 14.7 (5-15) BUN 12 (7-18) mg/dL Creatinine 1.0 (0.55-1.02) mg/dL Est Cr Clr Drug Dosing 82.18 mL/min Estimated GFR (MDRD) > 60 (>60) mL/min BUN/Creatinine Ratio 12.0 L (14-18) Glucose 93 (74-106) mg/dL Calcium 9.1 (8.5-10.1) mg/dL Magnesium 2.4 (1.8-2.4) mg/dl C-Reactive Protein 1.0 (<1.0) mg/dL Perez Results Last 24 Hours: Microbiology 08/11/18 08:15 Stool Culture - Preliminary Stool / Feces - Final NEGATIVE FOR SHIGA TOXIN 1 - Final NEGATIVE FOR SHIGA TOXIN 2 08/11/18 08:15 Cryptosporidium/Giardia - Final Stool / Feces Med Orders - Current: Current Medications Acetaminophen (Tylenol) 650 mg PO Q4H PRN PRN Reason: Pain (Mild 1-3)/fever Acetaminophen/Butalbital/Caffeine (Fioricet 325-50-40 Mg) 2 tab PO Q6H PRN PRN Reason: Headache Hydrocodone Bitart/Acetaminophen ([place] 325-5 Mg) 1 tab PO Q4H PRN PRN Reason: Pain (moderate 4-6) Acetazolamide (Diamox) 250 mg PO BID [facility] Last Admin: 08/12/18 08:31 Dose: 250 mg Albuterol/Ipratropium (Duoneb 3.0-0.5 Mg/3 Ml) 3 ml NEB Q4H PRN PRN Reason: Shortness Of Breath/wheezing Bisacodyl (Dulcolax) 5 mg PO DAILY PRN PRN Reason: Constipation Docusate Sodium (Colace) 100 mg PO BID PRN PRN Reason: Constipation Furosemide (Lasix) 40 mg PO DAILY [facility] Last Admin: 08/12/18 08:31 Dose: 40 mg Hydralazine HCl (Apresoline) 20 mg IVPUSH Q4H PRN PRN Reason: Hypertension Hydromorphone HCl (Dilaudid) 0.25 mg IVPUSH Q2H PRN PRN Reason: Pain (severe 7-10) Promethazine HCl 12.5 mg/ (Sodium Chloride) 50.5 mls @ 100 mls/hr IV Q6H PRN PRN Reason: Nausea/Vomiting Lorazepam (Ativan) 2 mg IVPUSH Q4H PRN PRN Reason: Seizures Lorazepam (Ativan) 1 mg IV Q6H PRN PRN Reason: Anxiety Last Admin: 08/12/18 04:43 Dose: 1 mg Magnesium Sulfate (Pharmacy To Dose - Magnesium Replacement) 0 dose .XX ASDIRECTED PRN PRN Reason: RX TO WATCH MAG LEVELS Metoprolol Tartrate (Lopressor) 5 mg IVPUSH Q4H PRN PRN Reason: Tachycardia Miscellaneous Information (Remove Patch) 1 ea TRDERM DAILY PRN PRN Reason: IF PATCH WAS USED Miscellaneous Information (Remove Patch) 1 ea TRDERM ONETIME ONE Stop: 08/14/18 16:01 Nicotine (Habitrol) 21 mg TRDERM DAILY PRN PRN Reason: Nicotine Dependence Ondansetron HCl (Zofran) 4 mg IV Q6H PRN PRN Reason: Nausea/Vomiting Polyethylene Glycol (Miralax) 17 gm PO DAILY PRN PRN Reason: Constipation Potassium Chloride (Pharmacy To Dose - Potassium Replacement) 0 dose .XX ASDIRECTED PRN PRN Reason: RX TO WATCH K LEVELS Senna/Docusate Sodium (Senna Plus) 1 tab PO BID PRN PRN Reason: Constipation Temazepam (Restoril) 15 mg PO BEDTIME PRN PRN Reason: Sleep Discontinued Medications Acetazolamide (Diamox) 500 mg PO ONETIME ONE Stop: 08/11/18 15:52 Last Admin: 08/11/18 17:01 Dose: 500 mg Furosemide (Lasix) 40 mg PO ONETIME ONE Stop: 08/11/18 15:52 Last Admin: 08/11/18 17:01 Dose: 40 mg Hydromorphone HCl (Dilaudid) 0.25 mg IVPUSH Q2H PRN PRN Reason: Pain (severe 7-10) Sodium Chloride (Normal Saline) 1,000 mls @ 125 mls/hr IV ASDIRECTED [facility] Last Admin: 08/11/18 07:55 Dose: 125 mls/hr Meclizine HCl (Antivert) 25 mg PO ONETIME ONE Stop: 08/11/18 07:29 Last Admin: 08/11/18 08:01 Dose: 25 mg Ondansetron HCl (Zofran) 4 mg IVPUSH ONETIME ONE Stop: 08/11/18 09:30 Last Admin: 08/11/18 09:36 Dose: 4 mg Scopolamine (Transderm-Scop) 1.5 mg TRDERM Q72H ONE Stop: 08/11/18 16:00 Last Admin: 08/11/18 17:00 Dose: 1.5 mg Sodium Chloride (Saline Flush) 10 ml FLUSH ASDIRECTED PRN PRN Reason: Keep Vein Open Last Admin: 08/11/18 07:55 Dose: 10 ml - Exam General: Alert, Oriented, Cooperative, No Acute Distress HEENT: Pupils Equal, Pupils Reactive, EOMI, Mucous Membr. Moist/[place] Neck: Supple, Trachea Midline Lungs: Clear to Auscultation, Normal Respiratory Effort Cardiovascular: Regular Rate, Regular Rhythm GI/Abdominal Exam: Normal Bowel Sounds, Soft, Non-Tender (Female) Exam: Deferred Back Exam: Normal Inspection, Full Range of Motion Extremities: Normal Inspection, Normal Range of Motion, Non-Tender, No Pedal Edema Peripheral Pulses: 2+: Radial (L), Radial (R), Posterior Tibial (L), Posterior Tibial (R) Skin: Warm, Dry, Intact, Other (hirsutism) Neurological: No New Focal Deficit Psy/Mental Status: Alert, Normal Affect, Normal Mood Physical Findings Comments:: Patient appears to be doing better today. She is sitting up and appears comfortable and in no acute distress. Obesity and hirsutism are noted; no other abnormalities seen upon exam. Although she is doing better, she is somewhat anxious about the symptoms she is having. - Problem List & Annotations (1) Weakness generalized SNOMED Code(s): 56298187 Code(s): R53.1 - WEAKNESS Status: Acute Current Visit: Yes (2) Pressure in head SNOMED Code(s): 30526270, 83783948 Code(s): R51 - HEADACHE Status: Acute Current Visit: Yes (3) Nausea, vomiting, and diarrhea SNOMED Code(s): 6981958 Code(s): R11.2 - NAUSEA WITH VOMITING, UNSPECIFIED; R19.7 - DIARRHEA, UNSPECIFIED Status: Acute Current Visit: Yes (4) Obesity SNOMED Code(s): 068350518, 656101539 Code(s): E66.9 - OBESITY, UNSPECIFIED Status: Acute Current Visit: Yes Qualifiers: Obesity classification: adult class 3 (BMI >= 40) Body mass index: BMI 45.0 -49.9 - Problem List Review Problem List Initiated/Reviewed/Updated: Yes - Plan Plan:: Intractable nausea, vomiting, diarrhea * Improved today - patient is eating, had mild nausea but no vomiting or diarrhea * Unclear etiology - benign workup * Stool culture negative for ova, parasites, c.dif * Denies travel, unusual diet/drink, recent antibiotic use, sick contacts * Supportive care * Anti-emetic PRN Probable ICH/pseudo-tumor cerebri * Head CT and MRI benign * Symptoms of headache, head pressure, associated GI complaints - improved today * Experiencing photophobia, difficulty focusing vision; denies eye pain * Lasix and carbonic anhydrase inhibitor (acetazolamide) started yesterday * Recommend weight loss Weakness, tingling, vibration * DDX: neurodegenerative disease, MS Morbid obesity * BMI 46 * Planetarium Sky [employer] Technician consult for weight management Suspected PCOS * Morbid obesity, hirsutism, amenorrhea * F/U with PCP - recommend OCP, metformin, weight loss Barbara Arredondo, MS-3. Dr. Hill has examined the patient and reviewed the note. <Manuelito Hill T - Last Filed: 08/12/18 13:34> - Patient Data Vitals - Most Recent: Last Vital Signs Temp 36.7 C 08/12/18 11:31 Pulse 88 08/12/18 11:31 Resp 22 H 08/12/18 11:31 BP 140/55 L 08/12/18 11:31 Pulse Ox 98 08/12/18 11:31 I&O - Last 24 Hours: Intake & Output 08/11/18 08/12/18 08/12/18 22:59 06:59 14:59 Intake Total 180 1200 120 Output Total 2800 Balance 180 -1600 120 Lab Results Last 24 Hours: Laboratory Results - last 24 hr 08/12/18 08/12/18 08/12/18 Range/Units 06:25 06:25 06:25 WBC 8.86 (3.98-10.04) K/mm3 RBC 4.72 (3.98-5.22) M/mm3 Hgb 13.3 (11.2-15.7) gm/L Hct 40.3 (34.1-44.9) % MCV 85.4 (79.4-94.8) fl MCH 28.2 (25.6-32.2) pg MCHC 33.0 (32.2-35.5) g/dl RDW Std Deviation 40.4 (36.4-46.3) fL Plt Count 312 (182-369) K/mm3 MPV 10.2 (9.4-12.3) fl Neut % (Auto) 58.4 (34.0-71.1) % Lymph % (Auto) 33.7 (19.3-51.7) % [place] % (Auto) 6.7 (4.7-12.5) % Eos % (Auto) 0.8 (0.7-5.8) Baso % (Auto) 0.3 (0.1-1.2) % Neut # (Auto) 5.17 (1.56-6.13) K/mm3 Lymph # (Auto) 2.99 (1.18-3.74) K/mm3 [place] # (Auto) 0.59 H (0.24-0.36) K/mm3 Eos # (Auto) 0.07 (0.04-0.36) K/mm3 Baso # (Auto) 0.03 (0.01-0.08) K/mm3 ESR 44 H (0-20) mm/hr Sodium 137 (136-145) mEq/L Potassium 3.7 (3.5-5.1) mEq/L Chloride 104 (98-107) mEq/L Carbon Dioxide 22 (21-32) mEq/L Anion Gap 14.7 (5-15) BUN 12 (7-18) mg/dL Creatinine 1.0 (0.55-1.02) mg/dL Est Cr Clr Drug Dosing 82.18 mL/min Estimated GFR (MDRD) > 60 (>60) mL/min BUN/Creatinine Ratio 12.0 L (14-18) Glucose 93 (74-106) mg/dL Calcium 9.1 (8.5-10.1) mg/dL Magnesium 2.4 (1.8-2.4) mg/dl C-Reactive Protein 1.0 (<1.0) mg/dL Perez Results Last 24 Hours: Microbiology 08/11/18 08:15 Stool Culture - Preliminary Stool / Feces - Final NEGATIVE FOR SHIGA TOXIN 1 - Final NEGATIVE FOR SHIGA TOXIN 2 08/11/18 08:15 Cryptosporidium/Giardia - Final Stool / Feces Med Orders - Current: Current Medications Acetaminophen (Tylenol) 650 mg PO Q4H PRN PRN Reason: Pain (Mild 1-3)/fever Acetaminophen/Butalbital/Caffeine (Fioricet 325-50-40 Mg) 2 tab PO Q6H PRN PRN Reason: Headache Hydrocodone Bitart/Acetaminophen ([place] 325-5 Mg) 1 tab PO Q4H PRN PRN Reason: Pain (moderate 4-6) Acetazolamide (Diamox) 250 mg PO BID [facility] Last Admin: 08/12/18 08:31 Dose: 250 mg Albuterol/Ipratropium (Duoneb 3.0-0.5 Mg/3 Ml) 3 ml NEB Q4H PRN PRN Reason: Shortness Of Breath/wheezing Bisacodyl (Dulcolax) 5 mg PO DAILY PRN PRN Reason: Constipation Docusate Sodium (Colace) 100 mg PO BID PRN PRN Reason: Constipation Furosemide (Lasix) 40 mg PO DAILY [facility] Last Admin: 08/12/18 08:31 Dose: 40 mg Hydralazine HCl (Apresoline) 20 mg IVPUSH Q4H PRN PRN Reason: Hypertension Hydromorphone HCl (Dilaudid) 0.25 mg IVPUSH Q2H PRN PRN Reason: Pain (severe 7-10) Promethazine HCl 12.5 mg/ (Sodium Chloride) 50.5 mls @ 100 mls/hr IV Q6H PRN PRN Reason: Nausea/Vomiting Lorazepam (Ativan) 2 mg IVPUSH Q4H PRN PRN Reason: Seizures Lorazepam (Ativan) 1 mg IV Q6H PRN PRN Reason: Anxiety Last Admin: 08/12/18 04:43 Dose: 1 mg Magnesium Sulfate (Pharmacy To Dose - Magnesium Replacement) 0 dose .XX ASDIRECTED PRN PRN Reason: RX TO WATCH MAG LEVELS Metoprolol Tartrate (Lopressor) 5 mg IVPUSH Q4H PRN PRN Reason: Tachycardia Miscellaneous Information (Remove Patch) 1 ea TRDERM DAILY PRN PRN Reason: IF PATCH WAS USED Miscellaneous Information (Remove Patch) 1 ea TRDERM ONETIME ONE Stop: 08/14/18 16:01 Nicotine (Habitrol) 21 mg TRDERM DAILY PRN PRN Reason: Nicotine Dependence Ondansetron HCl (Zofran) 4 mg IV Q6H PRN PRN Reason: Nausea/Vomiting Polyethylene Glycol (Miralax) 17 gm PO DAILY PRN PRN Reason: Constipation Potassium Chloride (Pharmacy To Dose - Potassium Replacement) 0 dose .XX ASDIRECTED PRN PRN Reason: RX TO WATCH K LEVELS Senna/Docusate Sodium (Senna Plus) 1 tab PO BID PRN PRN Reason: Constipation Temazepam (Restoril) 15 mg PO BEDTIME PRN PRN Reason: Sleep Discontinued Medications Acetazolamide (Diamox) 500 mg PO ONETIME ONE Stop: 08/11/18 15:52 Last Admin: 08/11/18 17:01 Dose: 500 mg Furosemide (Lasix) 40 mg PO ONETIME ONE Stop: 08/11/18 15:52 Last Admin: 08/11/18 17:01 Dose: 40 mg Hydromorphone HCl (Dilaudid) 0.25 mg IVPUSH Q2H PRN PRN Reason: Pain (severe 7-10) Sodium Chloride (Normal Saline) 1,000 mls @ 125 mls/hr IV ASDIRECTED [facility] Last Admin: 08/11/18 07:55 Dose: 125 mls/hr Meclizine HCl (Antivert) 25 mg PO ONETIME ONE Stop: 08/11/18 07:29 Last Admin: 08/11/18 08:01 Dose: 25 mg Methylprednisolone Sodium Succinate (Solu-Medrol) 125 mg IVPUSH ONETIME ONE Stop: 08/12/18 12:55 Last Admin: 08/12/18 13:03 Dose: 125 mg Ondansetron HCl (Zofran) 4 mg IVPUSH ONETIME ONE Stop: 08/11/18 09:30 Last Admin: 08/11/18 09:36 Dose: 4 mg Scopolamine (Transderm-Scop) 1.5 mg TRDERM Q72H ONE Stop: 08/11/18 16:00 Last Admin: 08/11/18 17:00 Dose: 1.5 mg Sodium Chloride (Saline Flush) 10 ml FLUSH ASDIRECTED PRN PRN Reason: Keep Vein Open Last Admin: 08/11/18 07:55 Dose: 10 ml - Problem List & Annotations (1) Pseudotumor cerebri syndrome SNOMED Code(s): 60063218 Code(s): G93.2 - BENIGN INTRACRANIAL HYPERTENSION Status: Acute Current Visit: Yes (2) Pressure in head SNOMED Code(s): 55257027, 30418545 Code(s): R51 - HEADACHE Status: Acute Current Visit: Yes (3) Morbid obesity with BMI of 40.0-44.9, adult SNOMED Code(s): 520632045 Code(s): E66.01 - MORBID (SEVERE) OBESITY DUE TO EXCESS CALORIES; Z68.41 - BODY MASS INDEX (BMI) 40.0-44.9, ADULT Status: Chronic Current Visit: Yes (4) Tingling SNOMED Code(s): 732647405 Code(s): R20.2 - PARESTHESIA OF SKIN Status: Acute Current Visit: Yes (5) Vibration syndrome of extremity SNOMED Code(s): 261070534 Code(s): EXX9912 - Status: Acute Current Visit: Yes (6) Nausea, vomiting, and diarrhea SNOMED Code(s): 8072935 Code(s): R11.2 - NAUSEA WITH VOMITING, UNSPECIFIED; R19.7 - DIARRHEA, UNSPECIFIED Status: Resolved Current Visit: Yes - My Orders Last 24 Hours: My Active Orders 08/11/18 15:51 LORazepam [Ativan] 2 mg IVPUSH Q4H PRN Metoprolol Tartrate [Lopressor] 5 mg IVPUSH Q4H PRN Nicotine [Habitrol] 21 mg TRDERM DAILY PRN hydrALAZINE [Apresoline] 20 mg IVPUSH Q4H PRN 08/11/18 15:52 Height and Weight [RC] 04 VTE/DVT Education [RC] DAILY Vital Signs [RC] Q4HR Consult to Case Management/General Utility Worker [CONS] Routine Consult to [employer] Technician [CONS] Routine OT Evaluation and Treatment [CONS] Routine PT Evaluation and Treatment [CONS] Routine Acetaminophen [Tylenol] 650 mg PO Q4H PRN Acetaminophen/HYDROcodone [[place] 325-5 MG] 1 tab PO Q4H PRN Albuterol/Ipratropium [DuoNeb 3.0-0.5 MG/3 ML] 3 ml NEB Q4H PRN Bisacodyl [Dulcolax] 5 mg PO DAILY PRN Docusate Sodium [Colace] 100 mg PO BID PRN Docusate Sodium/Sennosides [Senna Plus] 1 tab PO BID PRN LORazepam [Ativan] 1 mg IV Q6H PRN Ondansetron [Zofran] 4 mg IV Q6H PRN Polyethylene Glycol 3350 [MiraLAX] 17 gm PO DAILY PRN Promethazine [Phenergan] 12.5 mg Sodium Chloride 0.9% [Normal Saline] 50 ml IV Q6H Temazepam [Restoril] 15 mg PO BEDTIME PRN Resuscitation Status Routine 08/11/18 15:53 Intake and Output [RC] 04,16 08/11/18 16:00 Magnesium Rep Pharmacy to Dose [Pharmacy to Dose - Magnesium Replacement] 0 dose .XX ASDIRECTED PRN Potassium Rep Pharmacy to Dose [Pharmacy to Dose - Potassium Replacement] 0 dose .XX ASDIRECTED PRN 08/11/18 16:07 Acetaminophen/Butalbital/Caff [Fioricet 325-50-40 MG] 2 tab PO Q6H PRN 08/11/18 21:00 acetaZOLAMIDE [Diamox] 250 mg PO BID 08/11/18 Dinner Heart Healthy Diet [DIET] 08/12/18 07:15 HYDROmorphone [Dilaudid] 0.25 mg IVPUSH Q2H PRN 08/12/18 09:00 Furosemide [Lasix] 40 mg PO DAILY Remove Patch 1 ea TRDERM DAILY PRN 08/12/18 13:20 Ready for Discharge [RC] PER UNIT ROUTINE 08/13/18 05:11 BASIC METABOLIC PANEL,BMP [CHEM] AM C-REACTIVE PROTEIN [CHEM] AM CBC WITH AUTO DIFF [HEME] AM MAGNESIUM [CHEM] AM SEDIMENTATION RATE AUTO [HEME] AM 08/14/18 05:11 BASIC METABOLIC PANEL,BMP [CHEM] AM C-REACTIVE PROTEIN [CHEM] AM CBC WITH AUTO DIFF [HEME] AM MAGNESIUM [CHEM] AM SEDIMENTATION RATE AUTO [HEME] AM 08/14/18 16:00 Remove Patch 1 ea TRDERM ONETIME ONE - Plan Plan:: The patient was seen and examined at bedside in concert with the medical student. The assessment and plans were discussed and agreed upon with me. The patient felt better but still head head pressure. She now complaints of diffuse tingling and vibratory sensation. Made contact with Juan Antonio Shetty plant operations coordinator Neurologist and spoke to JASON Navarro. Discussed case with her and agreed of the diagnosis of IIH. Informed her she slightly improved with Diamox and Lasix but still symptomatic. Kenna discussed case further with Dr. Voss with the following recommendations: Methyprednisone 125 mg IVP BID x3 days and Repeat LP and if opening pressure is > 20 mmHg---> Must do "high volume tap" or discussed option for transfer. Relayed information to patient. We informed her, we do not do high volume tap here but we could still treat here medically. We will also have her schedule to see them (Neurology) next week for follow up appointment if available. After she processed all information, patient decided to go [place]. She is worried her symptoms have been going on for est 3 weeks now and has seen multiple providers that could not really help her. Called [facility] Transfer service in [place]. Spoke and discussed case with Dr. Dooley, Hospitalist and was kind enough to accept her. Patient will leave here via ground as soon as transportation arrives.
[2018-08-12] MEDS ORDERED: methylPREDNISolone Sodium Succinate 125 MG/2 ML SDV IVPUSH ONE (12:54)
[2018-08-12 13:04] VITALS: BP 140/55
--- NOTE | 2018-08-12 14:09 | PCM.DCSUM1 ---
Discharge Summary - Hospital Course Brief History: 27 y/o female presented to the ER today 08/11/18 with nausea, diarrhea, weakness, lethargy, and head pressure. She has been to the ER twice in the last two weeks for similar complaints, most recently on 08/05, and saw her PCP yesterday on 08/10. Previous workup has included blood draw, UA, EKG, head CT , and lumbar puncture, all of which showed no abnormalities. The lumbar puncture , done on 08/05, did not improve nor worsen her symptoms. She states her PCP ordered labs to test for Lyme disease, hypothyroidism, and diabetes. Blood pressure was 159/80 today. She says the symptoms first began about 2 weeks ago , when she woke up one morning with a severe headache, pain level "10/10", which she said was the worst pain of her life. Her mouth was extremely dry at that time so she drank water and her headache resolved within the hour. The headache was followed by a sensation of "head pressure" and onset of dizziness, nausea, vomiting, and diarrhea. She initially thought she had the stomach flu or a viral illness. She later developed muscle weakness, spasms, and stiffness which are most prominent in her back, shoulders, and calves. She has occasional numbness and tingling in her lower extremities. She has continued to have dry mouth since this began and drinks about 7 17oz bottles of water daily to relieve this. The symptoms have persisted the last couple weeks, with severity waxing and waning throughout that time. During the last 3-4 days, her symptoms have gotten progressively worse. She is now lethargic and fatigued. Dizziness and weakness has worsened to the point that she finds it difficult to stand without support and bright lights and loud sounds are bothersome to her. She is having diarrhea multiple times per day despite having no appetite and eating very little. She is finding it difficult to sleep as she can't get comfortable and is very worried about what is happening to her. She states "I feel that I may " and is very frustrated with her symptoms. She has not had symptoms like this prior to the last 2 weeks. She has not traveled recently. She has not been around anyone who is sick. She has not had any new or bad foods. She did have many bug bites this summer, some of which became swollen and red. She also moved to a new apartment this month. She denies fever, vision changes, chest pain, palpitations, bruising, bleeding, and skin rashes. Prior to this experience, the patient was fairly healthy. She has GERD, for which she takes occasional mylanta. She states her PCP has also been concerned that she may have PCOS, due to her hirsutism, obesity, and infrequent menstrual cycles. Her last menstrual period was "years ago" but she is not concerned about as she has never been sexually active. She also has had anxiety in the past and saw a psychologist but says that this has been under control the last couple years. She denies tobacco and drug use and has only consumed alcohol once in her life. She is not currently taking any medications. Diagnosis: Stroke: No - Discharge Data Discharge Date: 08/12/18 Discharge Disposition: DC/Tfer to [facility] Condition: Good - Discharge Diagnosis/Problem(s) (1) Pseudotumor cerebri syndrome SNOMED Code(s): 23571032 ICD Code: G93.2 - BENIGN INTRACRANIAL HYPERTENSION Status: Acute (2) Pressure in head SNOMED Code(s): 26874591, 99176300 ICD Code: R51 - HEADACHE Status: Acute (3) Morbid obesity with BMI of 40.0-44.9, adult SNOMED Code(s): 940874725 ICD Code: E66.01 - MORBID (SEVERE) OBESITY DUE TO EXCESS CALORIES; Z68.41 - BODY MASS INDEX (BMI) 40.0-44.9, ADULT Status: Chronic (4) Tingling SNOMED Code(s): 126450889 ICD Code: R20.2 - PARESTHESIA OF SKIN Status: Acute (5) Vibration syndrome of extremity SNOMED Code(s): 610166544 ICD Code: [id number] - Status: Acute (6) Nausea, vomiting, and diarrhea SNOMED Code(s): 2472731 ICD Code: R11.2 - NAUSEA WITH VOMITING, UNSPECIFIED; R19.7 - DIARRHEA, UNSPECIFIED Status: Resolved - Patient Summary/Data Operative Procedure(s) Performed: None Complications: None Consults: Consultations 08/11/18 15:52 Consult to Case Management/Sewing Machine Tester [CONS] Routine Consult to [place] [employer] [place]yer [CONS] Routine OT Evaluation and Treatment [CONS] Routine PT Evaluation and Treatment [CONS] Routine Labs Pending at D/C: None Recommended Follow-up Testing/Procedures: Possible LP with high volume tap Planned Operative Procedure(s) after DC: Unknown Hospital Course: Patient was admitted for vague complaints of intractable headache associated with nausea, vomiting, diarrhea and generalized weakness. She had seen multiple physicians but all work up were benign to include a head CT scan and brain MRI. On this admission, she was diagnosed with IIH/Pseudotumor Cerebri and she responded with Diamox and Lasix as her initial form of treatment. However she continued to remain symptomatic and now with complaints of diffuse tingling and abnormal vibratory sensation. We reached out to the television news anchor neurologist in [place] for guidance and recommendation. After we relayed recommendations to the patient, she requested to be transferred for upper level of care. Patient left here via ambulance and she will be admitted under the care of Dr. Cary Dooley, hospitalist attending. - Patient Instructions Diet: Usual Diet as Tolerated, Weight Loss Diet Activity: As Tolerated Driving: Do Not Drive Showering/Bathing: May Shower Notify Provider of: Fever, Increased Pain, Nausea and/or Vomiting Other/Special Instructions: - Trasnfer to [facility] under the services of Dr. Teodoro Dooley, Hospitalist. Dr. Voss and JASON Navarro will be consulting - Discharge Plan *PRESCRIPTION DRUG MONITORING PROGRAM REVIEWED*: Not Applicable *COPY OF PRESCRIPTION DRUG MONITORING REPORT IN PATIENT KERRIE: Not Applicable Home Medications: Home Meds . [No Known Home Meds] 05/29/16 [History] Patient Handouts: Idiopathic Intracranial Hypertension, Obesity, Adult, Easy-to -Read Referrals: Yasmine Albright PA-C [Primary Care Provider] - - Discharge Summary/Plan Comment DC Time >30 min.: Yes (45 mins) Discharge Summary/Plan Comment: Transfer to [facility] for upper level of care - General Info Date of Service: 08/12/18 Admission Dx/Problem (Free Text: Admission Diagnosis/Problem Admission Diagnosis/Problem Weakness Subjective Update: Follow up Functional Status: Reports: Pain Controlled, Tolerating Diet, Ambulating, Urinating, New Symptoms - Review of Systems General: Denies: Fever, Weakness, Fatigue, Malaise, Chills HEENT: Reports: No Symptoms Pulmonary: Denies: Shortness of Breath Cardiovascular: Denies: Chest Pain, Dyspnea on Exertion, Lightheadedness Gastrointestinal: Denies: Abdominal Pain, Decreased Appetite, Diarrhea, Nausea, Vomiting Genitourinary: Reports: No Symptoms Musculoskeletal: Reports: No Symptoms Skin: Denies: Cyanosis, Pallor, Diaphoresis, Bruising, Rash Neurological: Reports: Tingling, Other (Vibratory sensation and head pressure). Denies: Confusion, Dizziness, Headache, Numbness, Paresthesia, Pre-Existing Deficit, Seizure, Tremors, Trouble Speaking, Difficulty Walking, Weakness, Gait Disturbance Psychiatric: Denies: Confusion, Depression, Mood Lability, Anxiety, Agitation, Suicidal Ideation - Patient Data Vitals - Most Recent: Last Vital Signs Temp 36.7 C 08/12/18 11:31 Pulse 88 08/12/18 11:31 Resp 22 H 08/12/18 11:31 BP 140/55 L 08/12/18 11:31 Pulse Ox 98 08/12/18 11:31 Weight - Most Recent: 133.073 kg I&O - Last 24 hours: Intake & Output 08/11/18 08/12/18 08/12/18 22:59 06:59 14:59 Intake Total 180 1200 120 Output Total 2800 Balance 180 -1600 120 Lab Results - Last 24 hrs: Laboratory Results - last 24 hr 08/12/18 08/12/18 08/12/18 Range/Units 06:25 06:25 06:25 WBC 8.86 (3.98-10.04) K/mm3 RBC 4.72 (3.98-5.22) M/mm3 Hgb 13.3 (11.2-15.7) gm/L Hct 40.3 (34.1-44.9) % MCV 85.4 (79.4-94.8) fl MCH 28.2 (25.6-32.2) pg MCHC 33.0 (32.2-35.5) g/dl RDW Std Deviation 40.4 (36.4-46.3) fL Plt Count 312 (182-369) K/mm3 MPV 10.2 (9.4-12.3) fl Neut % (Auto) 58.4 (34.0-71.1) % Lymph % (Auto) 33.7 (19.3-51.7) % [place] % (Auto) 6.7 (4.7-12.5) % Eos % (Auto) 0.8 (0.7-5.8) Baso % (Auto) 0.3 (0.1-1.2) % Neut # (Auto) 5.17 (1.56-6.13) K/mm3 Lymph # (Auto) 2.99 (1.18-3.74) K/mm3 [place] # (Auto) 0.59 H (0.24-0.36) K/mm3 Eos # (Auto) 0.07 (0.04-0.36) K/mm3 Baso # (Auto) 0.03 (0.01-0.08) K/mm3 ESR 44 H (0-20) mm/hr Sodium 137 (136-145) mEq/L Potassium 3.7 (3.5-5.1) mEq/L Chloride 104 (98-107) mEq/L Carbon Dioxide 22 (21-32) mEq/L Anion Gap 14.7 (5-15) BUN 12 (7-18) mg/dL Creatinine 1.0 (0.55-1.02) mg/dL Est Cr Clr Drug Dosing 82.18 mL/min Estimated GFR (MDRD) > 60 (>60) mL/min BUN/Creatinine Ratio 12.0 L (14-18) Glucose 93 (74-106) mg/dL Calcium 9.1 (8.5-10.1) mg/dL Magnesium 2.4 (1.8-2.4) mg/dl C-Reactive Protein 1.0 (<1.0) mg/dL DANIEL Results - Last 24 hrs: Microbiology 08/11/18 08:15 Stool Culture - Preliminary Stool / Feces - Final NEGATIVE FOR SHIGA TOXIN 1 - Final NEGATIVE FOR SHIGA TOXIN 2 08/11/18 08:15 Cryptosporidium/Giardia - Final Stool / Feces Med Orders - Current: Current Medications Acetaminophen (Tylenol) 650 mg PO Q4H PRN PRN Reason: Pain (Mild 1-3)/fever Acetaminophen/Butalbital/Caffeine (Fioricet 325-50-40 Mg) 2 tab PO Q6H PRN PRN Reason: Headache Hydrocodone Bitart/Acetaminophen ([place] 325-5 Mg) 1 tab PO Q4H PRN PRN Reason: Pain (moderate 4-6) Acetazolamide (Diamox) 250 mg PO BID [facility] Last Admin: 08/12/18 08:31 Dose: 250 mg Albuterol/Ipratropium (Duoneb 3.0-0.5 Mg/3 Ml) 3 ml NEB Q4H PRN PRN Reason: Shortness Of Breath/wheezing Bisacodyl (Dulcolax) 5 mg PO DAILY PRN PRN Reason: Constipation Docusate Sodium (Colace) 100 mg PO BID PRN PRN Reason: Constipation Furosemide (Lasix) 40 mg PO DAILY [facility] Last Admin: 08/12/18 08:31 Dose: 40 mg Hydralazine HCl (Apresoline) 20 mg IVPUSH Q4H PRN PRN Reason: Hypertension Hydromorphone HCl (Dilaudid) 0.25 mg IVPUSH Q2H PRN PRN Reason: Pain (severe 7-10) Promethazine HCl 12.5 mg/ (Sodium Chloride) 50.5 mls @ 100 mls/hr IV Q6H PRN PRN Reason: Nausea/Vomiting Lorazepam (Ativan) 2 mg IVPUSH Q4H PRN PRN Reason: Seizures Lorazepam (Ativan) 1 mg IV Q6H PRN PRN Reason: Anxiety Last Admin: 08/12/18 04:43 Dose: 1 mg Magnesium Sulfate (Pharmacy To Dose - Magnesium Replacement) 0 dose .XX ASDIRECTED PRN PRN Reason: RX TO WATCH MAG LEVELS Metoprolol Tartrate (Lopressor) 5 mg IVPUSH Q4H PRN PRN Reason: Tachycardia Miscellaneous Information (Remove Patch) 1 ea TRDERM DAILY PRN PRN Reason: IF PATCH WAS USED Miscellaneous Information (Remove Patch) 1 ea TRDERM ONETIME ONE Stop: 08/14/18 16:01 Nicotine (Habitrol) 21 mg TRDERM DAILY PRN PRN Reason: Nicotine Dependence Ondansetron HCl (Zofran) 4 mg IV Q6H PRN PRN Reason: Nausea/Vomiting Polyethylene Glycol (Miralax) 17 gm PO DAILY PRN PRN Reason: Constipation Potassium Chloride (Pharmacy To Dose - Potassium Replacement) 0 dose .XX ASDIRECTED PRN PRN Reason: RX TO WATCH K LEVELS Senna/Docusate Sodium (Senna Plus) 1 tab PO BID PRN PRN Reason: Constipation Temazepam (Restoril) 15 mg PO BEDTIME PRN PRN Reason: Sleep Discontinued Medications Acetazolamide (Diamox) 500 mg PO ONETIME ONE Stop: 08/11/18 15:52 Last Admin: 08/11/18 17:01 Dose: 500 mg Furosemide (Lasix) 40 mg PO ONETIME ONE Stop: 08/11/18 15:52 Last Admin: 08/11/18 17:01 Dose: 40 mg Hydromorphone HCl (Dilaudid) 0.25 mg IVPUSH Q2H PRN PRN Reason: Pain (severe 7-10) Sodium Chloride (Normal Saline) 1,000 mls @ 125 mls/hr IV ASDIRECTED DANK Last Admin: 08/11/18 07:55 Dose: 125 mls/hr Meclizine HCl (Antivert) 25 mg PO ONETIME ONE Stop: 08/11/18 07:29 Last Admin: 08/11/18 08:01 Dose: 25 mg Methylprednisolone Sodium Succinate (Solu-Medrol) 125 mg IVPUSH ONETIME ONE Stop: 08/12/18 12:55 Last Admin: 08/12/18 13:03 Dose: 125 mg Ondansetron HCl (Zofran) 4 mg IVPUSH ONETIME ONE Stop: 08/11/18 09:30 Last Admin: 08/11/18 09:36 Dose: 4 mg Scopolamine (Transderm-Scop) 1.5 mg TRDERM Q72H ONE Stop: 08/11/18 16:00 Last Admin: 08/11/18 17:00 Dose: 1.5 mg Sodium Chloride (Saline Flush) 10 ml FLUSH ASDIRECTED PRN PRN Reason: Keep Vein Open Last Admin: 08/11/18 07:55 Dose: 10 ml - Exam General: Reports: Alert, Oriented, Cooperative, No Acute Distress, Other ( Morbidly Obese) HEENT: Reports: Pupils Equal, Pupils Reactive, EOMI, Mucous Membr. Moist/[place] Neck: Reports: Supple, Trachea Midline, No JVD Lungs: Reports: Clear to Auscultation, Normal Respiratory Effort Cardiovascular: Reports: Regular Rate, Regular Rhythm, Rubs GI/Abdominal Exam: Normal Bowel Sounds, Soft, Non-Tender, No Distention, No Abnormal Bruit, No Mass (Female) Exam: Deferred Rectal (Female) Exam: Deferred Back Exam: Reports: Normal Inspection, Decreased Range of Motion. Denies: Paraspinal Tenderness, Vertebral Tenderness Extremities: Normal Inspection, Normal Range of Motion, Non-Tender, No Pedal Edema, Normal Capillary Refill Skin: Reports: Warm, Dry, Intact Neurological: Reports: No New Focal Deficit, Normal Gait, Strength Equal Bilateral, Sensation Intact Psy/Mental Status: Reports: Alert, Normal Affect, Normal Mood
[2018-08-14] MEDS ORDERED: REMOVE SCOPALAMINE TRDERM ONE (16:00)
== END 2018-08-12 14:45 ==
LOC: JD.ED 06:31 → JD.MS 15:13
PROVIDERS: ADMIT Internal Medicine; ATTEND Internal Medicine
DX: G93.2 Benign intracranial hypertension (principal); R11.2 Nausea with vomiting, unspecified; R19.7 Diarrhea, unspecified; R53.1 Weakness; R20.2 Paresthesia of skin; E66.01 Morbid (severe) obesity due to excess calories; Z68.42 Body mass index [BMI] 45.0-49.9, adult; L68.0 Hirsutism; N91.2 Amenorrhea, unspecified; K21.9 Gastro-esophageal reflux disease without esophagitis; Z79.899 Other long term (current) drug therapy
CPT/HCPCS: 36415; 70551; 80048; 80053; 80306; 81001; 83735; 84436; 84443; 84484; 84703; 85025; 85652; 86140; 87046; 87328; 87329; 87493; 93005; 96361; 96374; 96375; 96376; 97161; 97165; 99285; A9270; G0378; G0480; J2060; J2405; J2930; J7040; J7050; 87427; 93010

== ENCOUNTER 2020-01-27 23:17 | Emergency (ER) | payer MEDICAID ==
[2020-01-27 23:33] VITALS: BP 154/99; PULSE 106
--- NOTE | 2020-01-28 00:37 | EDM.PDOC ---
ED HPI GENERAL MEDICAL PROBLEM - General Chief Complaint: Headache Stated Complaint: SOB/NAUSEA Time Seen by Provider: 01/28/20 00:36 - History of Present Illness INITIAL COMMENTS - FREE TEXT/NARRATIVE: 29-year-old female presents the emergency room with a bunch of different complaints. Initially she developed a headache but this seems to have resolved now she has some chest heaviness and difficulty breathing she has some sharp chest pain on the right side of her chest. She feels nauseated at times but does not have any abdominal pain. She complains of a pressure sensation over her head and over her chest and extremities. And she complains of generalized weakness. Bilateral Headache Pain Score (Numeric/FACES): 6 - Related Data Allergies Allergy/AdvReac Type Severity Reaction Status Date / Time No Known Allergies Allergy Verified 01/27/20 23:33 Home Meds: Home Meds . [No Known Home Meds] 05/29/16 [History] Past Medical History - Past Health History Medical/Surgical History: Denies Medical/Surgical History HEENT History: Reports: Impaired Vision Other HEENT History: corrected with contacts Cardiovascular History: Reports: None Respiratory History: Reports: Bronchitis, Recurrent Gastrointestinal History: Reports: GERD Genitourinary History: Reports: None DESKTOP SUPPORT MANAGER History: Reports: Polycystic Ovaries Other DESKTOP SUPPORT MANAGER History: PCOS Psychiatric History: Reports: Anxiety Endocrine/Metabolic History: Reports: Obesity/BMI 30+ - Infectious Disease History Infectious Disease History: Reports: None - Past Surgical History GI Surgical History: Reports: Cholecystectomy Social & Family History - Family History Family Medical History: Noncontributory Endocrine/Metabolic: Reports: Diabetes, type II Oncologic: Reports: Colon - Tobacco Use Smoking Status *Q: Never Smoker - Caffeine Use Caffeine Use: Reports: Soda - Recreational Drug Use Recreational Drug Use: No - Sexual History Sexual History: Reports: None - Living Situation & Occupation Living situation: Reports: with Family Occupation: Unemployed ED ROS GENERAL - Review of Systems Review Of Systems: See Below Constitutional: Reports: Weakness, Fatigue. Denies: Fever, Chills HEENT: Reports: No Symptoms Respiratory: Reports: Shortness of Breath, Pleuritic Chest Pain Cardiovascular: Reports: No Symptoms Endocrine: Reports: No Symptoms GI/Abdominal: Reports: No Symptoms : Reports: No Symptoms Musculoskeletal: Reports: No Symptoms Skin: Reports: No Symptoms Neurological: Reports: Headache Hematologic/Lymphatic: Reports: No Symptoms Immunologic: Reports: No Symptoms - Physical Exam Exam: See Below Exam Limited By: No Limitations General Appearance: Alert, No Apparent Distress, Obese Eye Exam: Bilateral Eye: Normal Inspection Ears: Normal External Exam, Normal Canal, Hearing Grossly Normal, Normal TMs Nose: Normal Inspection, Normal Mucosa, No Blood Throat/Mouth: Normal Inspection, Normal Lips, Normal Teeth, Normal Gums, Normal Oropharynx, Normal Voice, No Airway Compromise Head Exam: Atraumatic Neck: Normal Inspection, Supple, Non-Tender, Full Range of Motion. No: Lymphadenopathy (L), Lymphadenopathy (R) Respiratory/Chest: No Respiratory Distress, Lungs Clear, Normal Breath Sounds Cardiovascular: Regular Rate, Rhythm, No Edema, No Murmur GI/Abdominal: Normal Bowel Sounds, Soft, Non-Tender Neuro Exam (Abbreviated): Alert, Oriented, CN II-XII Intact, Normal Cognition, Normal Reflexes, No Motor/Sensory Deficits Back Exam: Normal Inspection. No: CVA Tenderness (L), CVA Tenderness (R) Extremities: Normal Inspection, No Pedal Edema Psychiatric: Flat Affect Skin Exam: Warm, Dry, Intact Course - Vital Signs Last Recorded V/S: Last Vital Signs Temp 37.1 C 01/27/20 23:30 Pulse 106 H 01/27/20 23:30 Resp 20 01/27/20 23:30 BP 154/99 H 01/27/20 23:30 Pulse Ox 100 01/27/20 23:30 - Orders/Labs/Meds Orders: Active Orders 24 hr Category Date Time Status EKG 12 Lead [EKG Documentation Completion] [RC] URGENT Care 01/28/20 00:10 Active Abdomen 2V AP Flat Upright [CR] Stat Exams 01/28/20 00:49 Taken Chest 1V Frontal [CR] Stat Exams 01/28/20 00:49 Taken Labs: Laboratory Tests 01/28/20 01/28/20 01/28/20 Range/Units 01:18 01:18 01:20 WBC 9.16 (3.98-10.04) K/mm3 RBC 4.65 (3.98-5.22) M/mm3 Hgb 13.0 (11.2-15.7) gm/dl Hct 40.9 (34.1-44.9) % MCV 88.0 (79.4-94.8) fl MCH 28.0 (25.6-32.2) pg MCHC 31.8 L (32.2-35.5) g/dl RDW Std Deviation 41.1 (36.4-46.3) fL Plt Count 314 (182-369) K/mm3 MPV 9.5 (9.4-12.3) fl Neut % (Auto) 70.6 (34.0-71.1) % Lymph % (Auto) 20.7 (19.3-51.7) % [place] % (Auto) 7.4 (4.7-12.5) % Eos % (Auto) 0.9 (0.7-5.8) Baso % (Auto) 0.2 (0.1-1.2) % Neut # (Auto) 6.46 H (1.56-6.13) K/mm3 Lymph # (Auto) 1.90 (1.18-3.74) K/mm3 [place] # (Auto) 0.68 H (0.24-0.36) K/mm3 Eos # (Auto) 0.08 (0.04-0.36) K/mm3 Baso # (Auto) 0.02 (0.01-0.08) K/mm3 D-Dimer, Quantitative (0.19-0.50) mg/L Sodium (136-145) mEq/L Potassium (3.5-5.1) mEq/L Chloride (98-107) mEq/L Carbon Dioxide (21-32) mEq/L Anion Gap (5-15) BUN (7-18) mg/dL Creatinine (0.55-1.02) mg/dL Est Cr Clr Drug Dosing mL/min Estimated GFR (MDRD) (>60) mL/min BUN/Creatinine Ratio (14-18) Glucose (74-106) mg/dL Calcium (8.5-10.1) mg/dL Total Bilirubin (0.2-1.0) mg/dL AST (15-37) U/L ALT (14-59) U/L Alkaline Phosphatase (46-116) U/L Troponin I (0.00-0.056) ng/mL Total Protein (6.4-8.2) g/dl Albumin (3.4-5.0) g/dl Globulin gm/dL Albumin/Globulin Ratio (1-2) TSH 3rd Generation (0.358-3.74) uIU/mL Urine Color Yellow (Yellow) Urine Appearance Clear (Clear) Urine pH 7.0 (5.0-8.0) Ur Specific [place] 1.010 (1.005-1.030) Urine Protein Negative (Negative) Urine Glucose (UA) Negative (Negative) Urine Ketones Negative (Negative) Urine Occult Blood Negative (Negative) Urine Nitrite Negative (Negative) Urine Bilirubin Negative (Negative) Urine Urobilinogen 0.2 (0.2-1.0) Ur Leukocyte Esterase Negative (Negative) Urine HCG, Qual Negative (NEGATIVE) 01/28/20 01/28/20 Range/Units 01:20 01:20 WBC (3.98-10.04) K/mm3 RBC (3.98-5.22) M/mm3 Hgb (11.2-15.7) gm/dl Hct (34.1-44.9) % MCV (79.4-94.8) fl MCH (25.6-32.2) pg MCHC (32.2-35.5) g/dl RDW Std Deviation (36.4-46.3) fL Plt Count (182-369) K/mm3 MPV (9.4-12.3) fl Neut % (Auto) (34.0-71.1) % Lymph % (Auto) (19.3-51.7) % [place] % (Auto) (4.7-12.5) % Eos % (Auto) (0.7-5.8) Baso % (Auto) (0.1-1.2) % Neut # (Auto) (1.56-6.13) K/mm3 Lymph # (Auto) (1.18-3.74) K/mm3 [place] # (Auto) (0.24-0.36) K/mm3 Eos # (Auto) (0.04-0.36) K/mm3 Baso # (Auto) (0.01-0.08) K/mm3 D-Dimer, Quantitative 0.21 (0.19-0.50) mg/L Sodium 139 (136-145) mEq/L Potassium 3.9 (3.5-5.1) mEq/L Chloride 105 (98-107) mEq/L Carbon Dioxide 26 (21-32) mEq/L Anion Gap 11.9 (5-15) BUN 9 (7-18) mg/dL Creatinine 0.9 (0.55-1.02) mg/dL Est Cr Clr Drug Dosing 89.69 mL/min Estimated GFR (MDRD) > 60 (>60) mL/min BUN/Creatinine Ratio 10.0 L (14-18) Glucose 115 H (74-106) mg/dL Calcium 9.0 (8.5-10.1) mg/dL Total Bilirubin 0.3 (0.2-1.0) mg/dL AST 24 (15-37) U/L ALT 37 (14-59) U/L Alkaline Phosphatase 53 (46-116) U/L Troponin I < 0.017 (0.00-0.056) ng/mL Total Protein 8.6 H (6.4-8.2) g/dl Albumin 3.4 (3.4-5.0) g/dl Globulin 5.2 gm/dL Albumin/Globulin Ratio 0.7 L (1-2) TSH 3rd Generation 2.351 (0.358-3.74) uIU/mL Urine Color (Yellow) Urine Appearance (Clear) Urine pH (5.0-8.0) Ur Specific [place] (1.005-1.030) Urine Protein (Negative) Urine Glucose (UA) (Negative) Urine Ketones (Negative) Urine Occult Blood (Negative) Urine Nitrite (Negative) Urine Bilirubin (Negative) Urine Urobilinogen (0.2-1.0) Ur Leukocyte Esterase (Negative) Urine HCG, Qual (NEGATIVE) Meds: Medications Discontinued Medications Generic Name Dose Route Start Last Admin Trade Name Ben PRN Reason Stop Dose Admin Diphenhydramine HCl 25 mg 01/28/20 00:51 01/28/20 01:31 Benadryl IVPUSH 01/28/20 00:52 25 mg ONETIME ONE Administration Lactated Ringer's 1,000 mls @ 999 mls/hr 01/28/20 00:51 01/28/20 01:29 Ringers, Lactated IV 01/28/20 01:51 999 mls/hr .BOLUS ONE Administration Ondansetron HCl 4 mg 01/28/20 00:51 01/28/20 01:29 Zofran IVPUSH 01/28/20 00:52 4 mg ONETIME ONE Administration - Re-Assessments/Exams Free Text/Narrative Re-Assessment/Exam: 01/28/20 03:03 Patient is nonsuggestive chest x-ray and abdominal x-ray showed no acute changes. Patient is received a liter of fluid and some Zofran she feels a little bit better she would like to go home and get some rest. Offered to send the patient home with some Zofran however she declined this. Departure - Departure Time of Disposition: 03:03 Disposition: Home, Self-Care 01 Clinical Impression: General ill feeling - Discharge Information Referrals: Yasmine Albright PA-C [Primary Care Provider] - Forms: ED Department Discharge Additional Instructions: Return to the emergency room with any questions problems or worsening symptoms. Clear liquid diet for the next 24 hours then slowly advance as tolerated. Follow-up with your provider next week. Sepsis Event Note - Evaluation Sepsis Screening Result: No Definite Risk - Focused Exam Vital Signs: Vital Signs Temp Pulse Resp BP Pulse Ox 01/27/20 23:30 37.1 C 106 H 20 154/99 H 100 Date Exam was Performed: 01/28/20 Time Exam was Performed: 03:03 - My Orders Last 24 Hours: My Active Orders 01/28/20 00:10 EKG 12 Lead [EKG Documentation Completion] [RC] URGENT 01/28/20 00:49 Abdomen 2V AP Flat Upright [CR] Stat Chest 1V Frontal [CR] Stat - Assessment/Plan Last 24 Hours: My Active Orders 01/28/20 00:10 EKG 12 Lead [EKG Documentation Completion] [RC] URGENT 01/28/20 00:49 Abdomen 2V AP Flat Upright [CR] Stat Chest 1V Frontal [CR] Stat
[2020-01-28] MEDS ORDERED: diphenhydrAMINE 50 MG/ML SDV IVPUSH ONE (00:51)
[2020-01-28] MEDS ORDERED: Lactated Ringers 1,000 ML IV ONE (00:51)
[2020-01-28] MEDS ORDERED: Ondansetron 4 MG/2 ML SDV IVPUSH ONE (00:51)
--- NOTE | 2020-01-28 08:39 | CR ---
Abdomen: Supine and upright views of the abdomen were obtained. Comparison: No previous abdominal imaging. Surgical clips are seen from prior cholecystectomy. Bowel gas pattern is normal. Bony structures are within normal limits for the patient's age. No free air is identified. Impression: 1. Nothing acute is appreciated on two-view abdominal x-ray. Diagnostic code #2 This report was dictated in [place] Standard Time
--- NOTE | 2020-01-28 08:39 | CR ---
Chest: Frontal view of the chest was obtained. Comparison: Prior chest x-ray of 05/29/16. Heart size and mediastinum are normal. Lungs are clear with no acute parenchymal change. Bony structures are grossly intact. Impression: 1. Nothing acute is appreciated on PA chest x-ray. Diagnostic code #1 This report was dictated in [place] Standard Time
== END 2020-01-28 03:12 | disposition home or self-care (01) ==
LOC: JD.ED 23:17
DX: R51 Headache (principal); E66.9 Obesity, unspecified; Z68.42 Body mass index [BMI] 45.0-49.9, adult
CPT/HCPCS: 36415; 71045; 74019; 80053; 81003; 81025; 84443; 84484; 85025; 85379; 93005; 96361; 96374; 96375; 99285; J1200; J2405; J7120; 93010; 99283

== ENCOUNTER 2023-03-10 09:34 | Emergency (ER) | payer MEDICAID ==
[2023-03-10 09:53] VITALS: BP 135/79
[2023-03-10] MEDS ORDERED: Sodium Chloride 0.9% 1,000 ML IV STA (10:20)
[2023-03-10] MEDS ORDERED: Ondansetron 4 MG/2 ML SDV IVPUSH ONE (10:20)
[2023-03-10] MEDS ORDERED: Sodium Chloride 0.9% 10 ML Syringe FLUSH PRN (10:20)
[2023-03-10] MEDS ORDERED: Ketorolac 30 MG/ML SDV IVPUSH ONE (10:21)
[2023-03-10 11:56] LABS: CORONAVIRUS COVID-19 NAA POSITIVE (NEGATIVE)
[2023-03-10 13:46] VITALS: PULSE 71
== END 2023-03-10 13:27 | disposition home or self-care (01) ==
LOC: JD.ED 09:34
DX: U07.1 COVID-19 (principal); E66.9 Obesity, unspecified; Z68.42 Body mass index [BMI] 45.0-49.9, adult; Z90.49 Acquired absence of other specified parts of digestive tract
CPT/HCPCS: 0241U; 36415; 80053; 81001; 83690; 84703; 85025; 96361; 96374; 96375; 99284; J1885; J2405; J3490; J7030; 99283

== ENCOUNTER 2023-11-04 09:00 | Emergency (ER) | payer MEDICAID ==
[2023-11-04] MEDS ORDERED: Albuterol/Ipratropium 3.0-0.5 MG/3 ML Neb Soln NEB ONE (09:20)
[2023-11-04] MEDS ORDERED: Ondansetron 4 MG/2 ML SDV IVPUSH ONE (09:21)
[2023-11-04] MEDS ORDERED: Sodium Chloride 0.9% 1,000 ML IV SCH (09:30)
[2023-11-04 10:12] LABS: CORONAVIRUS COVID-19 NAA NEGATIVE (NEGATIVE); INFLUENZA A NAA NEGATIVE (NEGATIVE); RESPIRATORY SYNCYTIAL VIR NAA NEGATIVE (NEGATIVE)
[2023-11-04 11:11] VITALS: BP 140/86; PULSE 65
== END 2023-11-04 11:00 | disposition home or self-care (01) ==
LOC: JD.ED 09:00
DX: J01.90 Acute sinusitis, unspecified (principal); Z20.822 Contact with and (suspected) exposure to COVID-19; Z90.49 Acquired absence of other specified parts of digestive tract
CPT/HCPCS: 0241U; 71046; 94640; 96361; 96374; 99285; J2405; J7030; 99283; J7620-GY

== ENCOUNTER 2024-11-03 17:49 | Emergency (ER) | payer MEDICAID ==
[2024-11-03 18:13] VITALS: BP 149/91; PULSE 102
[2024-11-03] MEDS ORDERED: Naloxone 0.4 MG/ML SDV IVPUSH PRN (18:47)
[2024-11-03] MEDS: Ketorolac 60 MG/2 ML SDV IM ONE (19:17)
[2024-11-03] MEDS: HYDROmorphone 1 MG/ML Syringe IM ONE (19:18)
[2024-11-03] MEDS: Metoclopramide 10 MG/2 ML SDV IM ONE (19:18)
== END 2024-11-03 20:00 | disposition home or self-care (01) ==
LOC: JD.ED 17:49
DX: M54.50 Low back pain, unspecified (principal); Z90.49 Acquired absence of other specified parts of digestive tract
CPT/HCPCS: 72131; 96372; 99284; J1885; J2765

== ENCOUNTER 2025-03-31 07:24 | Emergency (ER) | payer MEDICAID ==
[2025-03-31 07:53] VITALS: PULSE 88
[2025-03-31 09:31] VITALS: BP 125/78
== END 2025-03-31 09:15 | disposition home or self-care (01) ==
LOC: JD.ED 07:24
DX: J03.90 Acute tonsillitis, unspecified (principal); Z79.899 Other long term (current) drug therapy
CPT/HCPCS: 99283

== ENCOUNTER 2025-06-23 02:44 | Emergency (ER) | payer MEDICAID ==
[2025-06-23] MEDS ORDERED: Sodium Chloride 0.9% 10 ML Syringe FLUSH PRN (03:43)
[2025-06-23] MEDS ORDERED: Naloxone 0.4 MG/ML SDV IVPUSH PRN (03:43)
[2025-06-23] MEDS: Ketorolac 30 MG/ML SDV IVPUSH ONE (04:05)
[2025-06-23] MEDS: Ondansetron 4 MG/2 ML SDV IVPUSH ONE (04:05)
[2025-06-23 04:17] LABS: BASOPHILS ABSOLUTE AUTO 0.1 K/mm3 (0.0-0.2); BASOPHILS PERCENT AUTO 0.6 % (0.0-1.0); EOSINOPHILS ABSOLUTE AUTO 0.1 K/mm3 (0.0-0.4); EOSINOPHILS PERCENT AUTO 1.1 % (0.0-6.0); IMMATURE GRAN ABSOLUTE AUTO 0.02 K/mm3 (0.00-0.05); IMMATURE GRAN PERCENT AUTO 0.2 % (0.0-0.4); LYMPHOCYTES ABSOLUTE AUTO 2.8 K/mm3 (1.0-4.8); LYMPHOCYTES PERCENT AUTO 32.3 % (24.0-44.0); MEAN PLATELET VOLUME 9.5 fl (9.4-12.3); MONOCYTES ABSOLUTE AUTO 0.6 K/mm3 (0.0-0.8); MONOCYTES PERCENT AUTO 6.3 % (0.0-8.0); NEUTROPHILS ABSOLUTE AUTO 5.2 K/mm3 (1.8-7.7); NEUTROPHILS PERCENT AUTO 59.5 % (41.0-71.0); NRBC ABSOLUTE 0.00 (0.00-0.02); NRBC PERCENT 0.0 % (0.0-0.2); PLATELET COUNT,PLT 305 K/mm3 (150-400); RED BLOOD CELL COUNT 4.66 M/mm3 (4.10-5.30); WHITE BLOOD CELL COUNT,WBC 8.70 K/mm3 (3.9-11.3)
[2025-06-23 04:39] LABS: HCG QUALITATIVE,SERUM NEGATIVE (NEGATIVE)
[2025-06-23 04:50] LABS: LACTIC ACID 1.1 mmol/L (0.4-2.0)
[2025-06-23 04:53] LABS: PRO B-TYPE NATRIUR PEPT,BNPPRO 13 pg/mL (0-125)
[2025-06-23 04:57] LABS: A/G RATIO 0.7 (1-2); ALANINE AMINOTRANSFERASE,ALT 33.0 U/L (14-59); ASPARTATE AMNIOTRANSFERASE,AST 20.0 U/L (15-37); BILIRUBIN TOTAL 0.3 mg/dL (0.2-1.0); BLOOD UREA NITROGEN,BUN 11.0 mg/dL (7-18); CARBON DIOXIDE,CO2 27.0 mEq/L (21-32); CHLORIDE,CL 103.0 mEq/L (98-107); CREATININE 0.8 mg/dL (0.55-1.02); EST CRCL DRUG DOSING (CG) 96.36 mL/min; ESTIMATED GFR 99.0 mL/min (>60); GLUCOSE RANDOM 96.0 mg/dL (70-99); IRON,FE 52.0 ug/dL (50-170); PHOSPHORUS 3.6 mg/dL (2.6-4.7); POTASSIUM,K 3.7 mEq/L (3.5-5.1); PROTEIN TOTAL,TP 8.6 g/dl (6.4-8.2); SODIUM,NA 137.0 mEq/L (136-145); TSH 3.17 uIU/mL (0.358-3.74)
[2025-06-23 05:48] LABS: C. TRACHOMATIS BY PCR NOT DETECTED; N. GONORRHOEAE BY PCR NOT DETECTED
[2025-06-23 07:30] VITALS: BP 118/61; PULSE 76
== END 2025-06-23 07:15 | disposition home or self-care (01) ==
LOC: JD.ED 02:44
DX: M54.50 Low back pain, unspecified (principal); Z79.84 Long term (current) use of oral hypoglycemic drugs; Z79.899 Other long term (current) drug therapy
CPT/HCPCS: 36415; 80053; 82607; 83540; 83605; 83735; 83880; 84100; 84443; 84703; 85025; 85652; 86140; 87491; 87591; 96374; 96375; 99283; J1885; J2270; J2405; 99284